=== PATIENT | female | born 1980 | race Caucasian/White ===

== ENCOUNTER 2019-06-27 04:47 | Emergency (ER) | payer BC ==
[2019-06-27] MEDS ORDERED: NA CHLORIDE 0.9% 1,000 ML ONE (05:06)
[2019-06-27] MEDS ORDERED: METHYLPREDNISOLONE 125 MG INJ ONE (05:06)
[2019-06-27] MEDS ORDERED: DIPHENHYDRAMINE 50 MG/ML VIAL ONE (05:06)
[2019-06-27] MEDS ORDERED: predniSONE 20 MG TAB ONE (05:06)
[2019-06-27] MEDS ORDERED: FAMOTIDINE 20 MG/2 ML VIAL IV ONE (05:07)
[2019-06-27 05:15] LABS: Absolute Lymphocytes (CBC) 3.7 K/uL (0.7-4.9); Basophils % 0.7 % (0-1.3); Hematocrit 36.2 % (36.0-45.0)
[2019-06-27 05:32] LABS: Albumin 3.3 g/dL (3.4-5.0); Bilirubin Total 0.7 mg/dL (0.2-1.0); Potassium 3.7 mmol/L (3.5-5.1); Protein, Total 6.5 g/dL (6.4-8.2)
--- NOTE | 2019-06-27 05:38 | ER ---
Nurse's Notes [facility] Name: Barbara Mckeon Age: 39 yrs Sex: Female : 1980 Arrival Date: 06/27/2019 Time: 04:49 Bed 8 Private MD: Diagnosis: Syncope and collapse;Urticaria, unspecified Presentation: 06/26 04:58 Chief complaint: Patient states: "I got up because I was really thirsty. I took a good jd3 couple of sips of my kids juice and about the time I went to lay down my hands and neck started to itch real bad, my chest heart felt like it was racing and my said I past out after taking some Benadryl. I think I might be allergic to the juice." EMS states: "Pt reported that she might have had an allergic reaction to this fruit juice she drank.". Coronavirus screen: Proceed with normal triage. Ebola Screen: Patient negative for fever greater than or equal to 101.5 degrees Fahrenheit, and additional compatible Ebola Virus Disease symptoms. Initial Sepsis Screen: Does the patient meet any 2 criteria? No. Patient's initial sepsis screen is negative. Does the patient have a suspected source of infection? No. Patient's initial sepsis screen is negative. Risk Assessment: Do you want to hurt yourself or someone else? Patient reports no desire to harm self or others. Onset of symptoms was June 27, 2019. 04:58 Method Of Arrival: EMS: [facility] jd3 04:58 Acuity: ANDREW 3 jd3 05:03 Care prior to arrival: Medication(s) given: Normal saline infusion, 500 mL, zofran 4 jd3 mg, IV initiated. 18 GA, in the right antecubital area, Glucose check: 111. 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 - Social history:: Smoking status: Patient reports the use of cigarette tobacco products, denies chronic smoking, but will smoke occasionally. - Family history:: not pertinent. Screenin:05 Abuse screen: Denies threats or abuse. Nutritional screening: No deficits noted. jd3 Tuberculosis screening: No symptoms or risk factors identified. Fall Risk Ambulatory Aid- None/Bed Rest/Nurse Assist (0 pts). Gait- Normal/Bed Rest/Wheelchair (0 pts) Mental Status- Oriented to own ability (0 pts). Total Hernandez Fall Scale indicates No Risk (0-24 pts). Assessment: 05:03 General: Appears in no apparent distress. comfortable, Behavior is calm, cooperative, jd3 appropriate for age. Pain: Denies pain. Neuro: Level of Consciousness is awake, alert, obeys commands, Oriented to person, place, time, situation. Cardiovascular: Heart tones S1 S2 present Capillary refill < 3 seconds Patient's skin is warm and dry. Respiratory: Airway is patent Respiratory effort is even, unlabored, Respiratory pattern is regular, symmetrical, Breath sounds are clear bilaterally. Denies cough, shortness of breath. GI: Reports nausea prior to arrival, nothing reported at this time. : No signs and/or symptoms were reported regarding the genitourinary system. EENT: No signs and/or symptoms were reported regarding the EENT system. Derm: Skin is intact, Skin is dry, Skin is normal, Skin temperature is warm redness noted to LISSA hands. Musculoskeletal: Circulation, motion, and sensation intact. Range of motion: intact in all extremities. 05:48 Reassessment: Patient appears in no apparent distress at this time. Patient and/or jd3 family updated on plan of care and expected duration. Pain level reassessed. Patient is alert, oriented x 3, equal unlabored respirations, skin warm/dry/pink. awaiting family for discharge. Patient denies pain at this time. Patient states feeling better. Vital Signs: 05:02 BP 115 / 85; Pulse 83; Resp 17 S; Temp 97.5(O); Pulse Ox 100% on R/A; Weight 62.6 kg jd3 (R); Height 5 ft. 7 in. (170.18 cm) (R); Pain 0/10; 05:49 BP 116 / 80; Pulse 81; Resp 17 S; Pulse Ox 100% on R/A; jd3 05:02 Body Mass Index 21.61 (62.60 kg, 170.18 cm) [facility] ED Course: 04:49 Patient arrived in ED. ds1 04:52 Jose Sheldon MD is Attending Physician. ghislaine 04:57 Ross Lundy RN is Primary Nurse. jd3 05:00 Maintain EMS IV. Dressing intact. Good blood return noted. Site clean \\T\\ dry. Gauge \\T\\ damian 3 site: 18 G to the right AC. 05:01 Triage completed. jd3 05:03 Arm band placed on. jd3 05:06 Patient has correct armband on for positive identification. Bed in low position. Call jd3 light in reach. Side rails up X 1. Pulse ox on. NIBP on. Warm blanket given. 05:07 Comprehensive Metabolic Panel Sent. tl2 05:07 CBC with Diff Sent. tl2 05:49 No provider procedures requiring assistance completed. IV discontinued, intact, jd3 bleeding controlled, No redness/swelling at site. Pressure dressing applied. Administered Medications: 05:13 Drug: Pepcid 20 mg Route: IVP; Infused Over: 2 mins; Site: right antecubital; tl1 05:49 Follow up: Response: No adverse reaction jd3 05:13 Drug: SOLU-Medrol 125 mg Route: IVP; Infused Over: 2 mins; Site: right antecubital; tl1 05:49 Follow up: Response: No adverse reaction jd3 05:13 Drug: predniSONE 20 mg Route: PO; tl1 05:49 Follow up: Response: No adverse reaction jd3 05:14 Drug: NS 0.9% 1000 ml Route: IV; Rate: 1 bolus; Site: right antecubital; tl1 05:48 Follow up: Response: No adverse reaction; IV Status: Completed infusion; IV Intake: jd3 1000ml 05:14 Drug: Benadryl 25 mg Route: IVP; Infused Over: 2 mins; Site: right antecubital; tl1 05:49 Follow up: Response: No adverse reaction jd3 Intake: 05:48 IV: 1000ml; Total: 1000ml. jd3 Outcome: 05:37 Discharge ordered by . ghislaine 05:50 Discharged to home ambulatory, with family. jd3 05:50 Condition: stable 05:50 Discharge instructions given to patient, Instructed on discharge instructions, follow up and referral plans. medication usage, Demonstrated understanding of instructions, follow-up care, medications, Prescriptions given X 4. 05:54 Patient left the ED. jd3 Signatures: Jose Sheldon MD MD cha Sanford, Demi ds1 Rona Woods, RN RN tl1 Hodan Mckeon RN RN tl2 Ross Lundy RN RN jd3
--- NOTE | 2019-06-27 05:38 | EDPHYS ---
Physician Documentation [facility] Name: Barbara Mckeon Age: 39 yrs Sex: Female : 1980 Arrival Date: 06/27/2019 Time: 04:49 Bed 8 Private MD: ED Physician Jose Sheldon HPI: 06/26 04:57 This 39 yrs old Female presents to ER via Unassigned with complaints of ghislaine Syncope. 04:57 The patient has experienced syncope, collapsed. Onset: The symptoms/episode ghislaine began/occurred just prior to arrival. Duration: This was a single episode. 04:57 The patient presents with itching, localized swelling, rash, redness of skin, runny ghislaine nose. Associated signs and symptoms: Pertinent positives: hives, light headed, swelling, syncope. Possible causes: grapes. At home the patient or guardian has treated the symptoms with Benadryl. Severity of symptoms: At their worst the symptoms were mild in the emergency department the symptoms are unchanged. 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 - Social history:: Smoking status: Patient reports the use of cigarette tobacco products, denies chronic smoking, but will smoke occasionally. - Family history:: not pertinent. ROS: 04:57 Constitutional: Negative for fever, chills, and weight loss, Eyes: Negative for injury, ghislaine pain, redness, and discharge, ENT: Negative for injury, pain, and discharge, Neck: Negative for injury, pain, and swelling, Cardiovascular: Negative for chest pain, palpitations, and edema, Respiratory: Negative for shortness of breath, cough, wheezing, and pleuritic chest pain, Abdomen/GI: Negative for abdominal pain, nausea, vomiting, diarrhea, and constipation, Back: Negative for injury and pain, : Negative for injury, bleeding, discharge, and swelling, MS/Extremity: Negative for injury and deformity, Psych: Negative for depression, anxiety, suicide ideation, homicidal ideation, and hallucinations, Allergy/Immunology: Negative for hives, rash, and allergies, Endocrine: Negative for neck swelling, polydipsia, polyuria, polyphagia, and marked weight changes, Hematologic/Lymphatic: Negative for swollen nodes, abnormal bleeding, and unusual bruising. 04:57 Skin: Positive for rash, diffusely. 04:57 Neuro: Positive for syncope, near syncope. Exam: 04:57 Constitutional: This is a well developed, well nourished patient who is awake, alert, ghislaine and in no acute distress. Eyes: Pupils equal round and reactive to light, extra-ocular motions intact. Lids and lashes normal. Conjunctiva and sclera are non-icteric and not injected. Cornea within normal limits. Periorbital areas with no swelling, redness, or edema. ENT: Nares patent. No nasal discharge, no septal abnormalities noted. Tympanic membranes are normal and external auditory canals are clear. Oropharynx with no redness, swelling, or masses, exudates, or evidence of obstruction, uvula midline. Mucous membranes moist. Neck: Trachea midline, no thyromegaly or masses palpated, and no cervical lymphadenopathy. Supple, full range of motion without nuchal rigidity, or vertebral point tenderness. No Meningismus. Chest/axilla: Normal chest wall appearance and motion. Nontender with no deformity. No lesions are appreciated. Cardiovascular: Regular rate and rhythm with a normal S1 and S2. No gallops, murmurs, or rubs. Normal PMI, no JVD. No pulse deficits. Respiratory: Lungs have equal breath sounds bilaterally, clear to auscultation and percussion. No rales, rhonchi or wheezes noted. No increased work of breathing, no retractions or nasal flaring. Abdomen/GI: Soft, non-tender, with normal bowel sounds. No distension or tympany. No guarding or rebound. No evidence of tenderness throughout. Back: No spinal tenderness. No costovertebral tenderness. Full range of motion. MS/ Extremity: Pulses equal, no cyanosis. Neurovascular intact. Full, normal range of motion. Neuro: Awake and alert, GCS 15, oriented to person, place, time, and situation. Cranial nerves II-XII grossly intact. Motor strength 5/5 in all extremities. Sensory grossly intact. Cerebellar exam normal. Normal gait. Psych: Awake, alert, with orientation to person, place and time. Behavior, mood, and affect are within normal limits. 04:57 Head/face: Noted is erythema, that is mild, of the right ear, left ear, right base of the skull and right mandible. 04:57 ENT: Posterior pharynx: no acute changes, Airway: normal, no evidence of obstruction. 04:57 Skin: Appearance: Color: normal in color, Temperature: normal temperature, Moisture: normal moisture, petechiae, not noted, ecchymosis, not noted, flushing, noted on the face, scalp, right hand and left hand, diaphoresis is not appreciated. 05:05 Musculoskeletal/extremity: DVT Exam: No signs of deep vein thrombosis. no pain, no ghislaine swelling, no tenderness, negative Homans' sign noted on exam, no appreciated bluish discoloration, no erythema, no increased warmth. 05:17 ECG was reviewed by the Attending Physician. [facility] Vital Signs: 05:02 BP 115 / 85; Pulse 83; Resp 17 S; Temp 97.5(O); Pulse Ox 100% on R/A; Weight 62.6 kg jd3 (R); Height 5 ft. 7 in. (170.18 cm) (R); Pain 0/10; 05:49 BP 116 / 80; Pulse 81; Resp 17 S; Pulse Ox 100% on R/A; jd3 05:02 Body Mass Index 21.61 (62.60 kg, 170.18 cm) jd3 MDM: 04:52 Patient medically screened. [facility] 05:00 Data reviewed: vital signs, nurses notes, lab test result(s). [facility] 05:03 Differential diagnosis: anaphylaxis, angioedema, Hereditary Angioedema urticaria, ghislaine Vasovagal Reactions. Differential Diagnosis: cardiac arrhythmia, drug effect, emotional response, idiopathic syncope, seizure, vasovagal episode. 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 Test interpretation: by ED physician or midlevel provider: ECG. 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 Medication response: benadryl, pepcid and steroids. ED course: pt improved, pt explained results and thoughts and plans. 05:37 ED course: pt at baseline, much improved. [facility] 06/26 04:57 Order name: CBC with Diff; Complete Time: 05:36 [facility] 06/26 04:57 Order name: Comprehensive Metabolic Panel; Complete Time: 05:36 [facility] 06/26 05:06 Order name: EKG; Complete Time: 05:06 [facility] 06/26 05:06 Order name: EKG - Nurse/Tech; Complete Time: 05:12 [facility] EC: Rate is 82 beats/min. Rhythm is regular. QRS [place] is Normal. [place] interval is normal. QRS ghislaine interval is normal. QT interval is normal. No Q waves. T waves are Normal. No ST changes noted. Clinical impression: Normal ECG and No evidence of ischemia. Interpreted by me. Reviewed by me. Administered Medications: 05:13 Drug: Pepcid 20 mg Route: IVP; Infused Over: 2 mins; Site: right antecubital; tl1 05:49 Follow up: Response: No adverse reaction jd3 05:13 Drug: SOLU-Medrol 125 mg Route: IVP; Infused Over: 2 mins; Site: right antecubital; tl1 05:49 Follow up: Response: No adverse reaction jd3 05:13 Drug: predniSONE 20 mg Route: PO; tl1 05:49 Follow up: Response: No adverse reaction jd3 05:14 Drug: NS 0.9% 1000 ml Route: IV; Rate: 1 bolus; Site: right antecubital; tl1 05:48 Follow up: Response: No adverse reaction; IV Status: Completed infusion; IV Intake: jd3 1000ml 05:14 Drug: Benadryl 25 mg Route: IVP; Infused Over: 2 mins; Site: right antecubital; tl1 05:49 Follow up: Response: No adverse reaction jd3 Disposition: 06/27/19 05:37 Discharged to Home. Impression: Syncope and collapse, Urticaria, unspecified. - Condition is Stable. - Discharge Instructions: Hives, Near-Syncope, Syncope, Angioedema, Weakness, Near-Syncope, Ghvn-[id number]-[id number], Syncope, Flbk-rk-Dthi, Weakness, Jgmj-[id number], Hives, Hsfh-xs-[id number]. - Prescriptions for Benadryl 25 mg Oral Capsule - take 1 capsule by ORAL route every 6 hours As needed; 30 tablet. Pepcid 20 mg Oral Tablet - take 1 tablet by ORAL route every 12 hours for 10 days; 20 tablet. Prednisone 20 mg Oral Tablet - take 2 tablet by ORAL route once daily for 5 days; 10 tablet. EpiPen 0.3 mg Injection auto- injector - inject 1 pen by INTRAMUSCULAR route one time Inject into the outer portion of the thigh, through clothing if necessary. Indicated in the emergency treatment of allergic reactions; 1 Container. - Medication Reconciliation Form, Thank You Letter, Antibiotic Education, Prescription Opioid Use form. - Follow up: Private Physician; When: 2 - 3 days; Reason: Recheck today's complaints, Continuance of care, Re-evaluation by your physician. - Problem is new. - Symptoms have improved. 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 Impression: Syncope and collapse; Urticaria, jd3 unspecified. Condition is Stable. Discharge Instructions: Hives, Near-Syncope, Syncope, Angioedema, Weakness, Near-Syncope, Tnrh-uc-Mdvc, Syncope, Fycc-ho-Rsdo, Weakness, Tgzf-pr-Rzjz, Hives, Znkc-qp-Hezr. Prescriptions for Benadryl 25 mg Oral Capsule - take 1 capsule by ORAL route every 6 hours As needed; 30 tablet, Pepcid 20 mg Oral Tablet - take 1 tablet by ORAL route every 12 hours for 10 days; 20 tablet, Prednisone 20 mg Oral Tablet - take 2 tablet by ORAL route once daily for 5 days; 10 tablet, EpiPen 0.3 mg Injection auto-injector - inject 1 pen by INTRAMUSCULAR route one time Inject into the outer portion of the thigh, through clothing if necessary. Indicated in the emergency treatment of allergic reactions; 1 Container. and Forms are Medication Reconciliation Form, Thank You Letter, Antibiotic Education, Prescription Opioid Use. Follow up: Private Physician; When: 2 - 3 days; Reason: Recheck today's complaints, Continuance of care, Re-evaluation by your physician. Problem is new. Symptoms have improved. ghislaine
[2019-06-27 06:34] VITALS: BP 116/80; O2SAT 100
[2019-06-27 06:38] VITALS: TEMP 97.5
--- NOTE | 2019-06-29 07:04 | EKG ---
Test Date: 2019-06-27 Test Time: 05:16:28 Turner Machine: OSCAR MEASUREMENT RESULTS: Intervals: Rate: 82 OK: 188 QRSD: 90 QT: 368 QTc: 429 [place]: P: 57 OK: 188 QRS: 73 T: 64 INTERPRETIVE STATEMENTS: Normal sinus rhythm Possible Anterior infarct, age undetermined Abnormal ECG No previous ECG available for comparison Electronically Signed On 06-29-19 07:00:40 CDT by Randy Valiente
== END 2019-06-27 05:54 | disposition home or self-care (01) ==
LOC: ER 04:47
DX: L50.9 Urticaria, unspecified (principal); Z72.0 Tobacco use; Z88.0 Allergy status to penicillin
CPT/HCPCS: 96361; 93005; 85025; 36415; 80053; 96375; 96374; 99284; J1200; J7030; J2930; J7512

== ENCOUNTER 2022-04-25 09:52 | Observation (INO) | payer BC ==
--- OUTSIDE RECORDS SUMMARY | 2022-04-25 09:55 | XMS REPORT | Continuity of Care Document ---
:1980 Author Organization [facility] t Address [address] [address] [place] [address] Care Team Providers Name Role Phone MAGDI BONILLA Primary Care Physician Unavailable Kajal Erickson NP Attending Clinician KAJAL ERICKSON Attending Clinician Unavailable Gale Tran Attending Clinician Unavailable Nadira CARRION, Louis Attending Clinician Diogo Burroughs MD Attending Clinician KAJAL ERICKSON Admitting Clinician Unavailable Physician, No Primary or Family Admitting Clinician Unavaila [facility] Payers Payer Name Policy Type Policy Number Effective Date Expiration Date S ource Problems Condition Condition Condition Status Onset Resolution Last Treating Co mments Source Name Details Category Date Date Treatment Clinician Date 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 Will have the patient get neuropsyc hological testing.T he testing will be put on hold for now until next visit. Multiple Multiple Disease Active [facility] sclerosis sclerosis 11-05 Assessmen L [facility] 00:00: t & Plan: Medical 00 [facility] g of this note might be different from the original. Will continue with Copaxone. 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 Patient to continue with primidone 100 mg at night. Multiple Multiple Disease Active 2009-02 [facility] r sclerosis sclerosis 2-20 Valerio ege (HCCode) (HCCode) 00:00: of 00 Medicin e Allergies, Adverse Reactions, Alerts Allergy Allergy Status Severity Reaction(s) Onset Inactive Treating Comm ents Source Name Type Date Date Clinician Grape Propensi Active Anaphylaxis 2020-02 Uni vers ty to 1-05 ity of adverse 00:00: [place] reaction 00 Medical s Branch Penicill Propensi Active Hives 2020-02 Univer s ins ty to 105 ity of adverse 00:00: [place] reaction 00 Medical s Branch PENICILL Drug Active Hives 2020-02 Univers INS Class 1-05 ity of 00:00: [place] 00 Medical Branch GRAPE DRUG Active Anaphylaxis 2020-02 Unive rs INGREDI 1-05 ity of 00:00: [place] 00 Medical Branch Sulfa Propensi Active [facility] Antibiot ty to 5-22 [facility] adverse 00:00: of reaction 00 Medicin s to e drug Sulfa Drug Active Hives [facility] (Sulfona Allergy 11-05 [facility] mide 00:00: Medical Antibiot 00 [facility]) Not DA Active U [facility] 6-21 [place] [facility] 36. 00:00: d See 00 Medical Text[facility] Not DA Active U 2008-0 [facility] Converte 6-21 [place] [facility] 80. 00:00: d See 00 Medical Text. Center NO KNOWN Drug Active Univers ALLERGIE Class ity of S [facility] Family History Family Member Diagnosis Comments Start Date Stop Date Source Maternal grandmother Cancer [facility] Maternal grandmother Hypertension [facility] Natural mother Arthritis [facility] Natural mother Migraines [facility] Paternal grandmother Cancer [facility] Paternal grandmother Hyperlipidemia [facility] Natural daughter Asthma [facility] Natural daughter Migraines [facility] Maternal aunt Cancer [facility] Maternal grandfather Cancer [facility] Social History Social Habit Start Date Stop Date Quantity Comments Source History of Current smoker [facility] [place] of tobacco use Medicine Exposure to Not sure University of SARS-CoV-2 [place] [facility] (event) Branch Alcohol intake 2018-10-26 2018-10-26 Current drinker CHULA Wiggins 00:00:00 00:00:00 of alcohol [facility] (finding) Sex Assigned At [birth year] [facility] 00:00:00 [facility]:00 [facility] Smoking Status Start Date Stop Date Source Unknown if ever smoked Universit y of [facility] Former smoker 2019-02-23 00:00:00 2019-02-23 00:00:00 [facility] Medications Ordered Filled Start Stop Current Ordering Indication Dosage Frequency Signature Comments Components Source Medication Medication Date Date Medication? Clinician (SIG) Name Name arthur 2020-02- No 1{tbl} 1 tablet, Univers acetaminoph 02-15 Oral, ity of en-caff 02:30: 01:38 ONCE, 1 Maximo (ESGIC) 00 :00 dose, On Medical 50-325-40 Fri Branch mg tablet 1 12/15/20 at tablet 2130, Routine predniSONE 2020-02- No 50mg 50 mg, Univ ers (DELTASONE) 02-15 Oral, ity of tablet 50 02:30: 01:39 ONCE, 1 [place] mg 00 :00 dose, On Medical Fri Branch 12/15/20 at 2130, BOBBY valACYclovi 2020-02- No 1000mg 1,000 mg, Univers r (VALTREX) 02-15 Oral, ONCE i ty of tablet 02:30: 01:38 NOW, 1 [place] 1,000 mg 00 :00 dose, On Medical Fri Branch 12/15/20 at 2130, BOBBY methylPREDN 2020-02 Yes [id number] Take by Univers ISolone 4 1-05 mouth ity of mg tablets 00:00: SEE-INSTRU T [place] 00 CTIONS. Medical follow Branch package directions butalbital- 2020-02 Yes [id number] 1{tbl} Take 1 Univers acetaminoph 1-05 tablet by ity of en-caff 00:00: mouth [place] 50-325-40 00 every 4 Medical mg tablet (four) Branch hours as needed for Pain (scale 1-3) or Pain (scale 4-6). valACYclovi 2020-02- No [id number] 1g Take 1 Univers r 1 gram 1-05 11-13 tablet by ity o f tablet 00:00: 05:59 mouth 2 [place] 00 :00 (two) Medical times Branch daily for 7 days. natalizumab 2019- No 300mg Inject 300 Davi , TYSABRI, 1-14 01-14 mg into Colle ge (TYSABRI) 17:35: 00:00 the vein of 300 MG/15ML 56 :00 once. Medicin injection e propranolol Yes 20mg Take 1 Tab [facility] (INDERAL) 1-14 by mouth 3 Valerio ege 20 MG 00:00: times of tablet 00 daily. Medicin e escitalopra Yes TAKE ONE Ba ylor m (LEXAPRO) 1-06 (1) College 20 MG 00:00: TABLET(S) of tablet 00 BY MOUTH Medicin DAILY. e MAVENCLAD, 2018-02 Yes Davi 7 TABS, 10 2-31 College MG TBPK 00:00: of 00 Medicin e gabapentin 2018-02 Yes TAKE ONE [facility] (NEURONTIN) 1-08 (1) College 300 MG 00:00: CAPSULE(S) of capsule 00 BY MOUTH Medicin TWICE A e DAY. predniSONE 2019- No 1000mg Take 20 B aylor (DELTASONE) 9-27 01-14 Tabs by Valerio ege 50 MG 00:00: 00:00 mouth of tablet 00 :00 daily. Medicin e gabapentin Yes 300mg Take 1 Cap [facility] (NEURONTIN) 8-14 by mouth Valerio ege 300 MG 00:00: two times of capsule 00 daily. Medicin e Cholecalcif Yes Take by [facility] alex 4-22 mouth. [place] (VITAMIN 13:39: of D3) 5000 12 Medicin UNITS CHEW e natalizumab Yes 300mg Inject 300 Davi , TYSABRI, 4-22 mg into Colleg e (TYSABRI) 13:39: the vein of 300 MG/15ML 12 once. Medicin injection e Cholecalcif Yes Take by [facility] alex 4-22 mouth. [place] (VITAMIN 13:39: of D3) 5000 12 Medicin UNITS CHEW e escitalopra Yes 20mg Take 1 Tab Davi m (LEXAPRO) 4 by mouth [facility] ege 20 MG 00:00: daily. of tablet 00 Medicin e escitalopra Yes 10mg Take 1 Tab Davi m (LEXAPRO) 8 by mouth Val[facility]io ege 10 MG 00:00: daily. of tablet 00 Medicin e escitalopra 2020- No 10mg Take 1 Tab Davi m (LEXAPRO) 09-1514 by mouth Col lege 10 MG 00:00: 00:00 daily. of tablet 00 :00 Medicin e VITAMIN D2 Yes TAKE 1 [facility] t 50,000 unit 5-23 CAPSULE [facility] capsule 00:00: (50,000 Medical 00 UNITS Center TOTAL) BY MOUTH ONCE A WEEK. multivitami Yes 1{tbl} QD Take [address] n per 2-03 tablet by [facility]ukes tablet 10:16: mouth Medical 11 daily. Center sertraline Yes 25mg QD Take [address] (ZOLOFT) 25 2-03 by mouth Luke s MG tablet 10:16: daily. Medica l 11 [place] COPAXONE 40 2015-02 Yes 40mg/mL Inject [address] mg/mL Syrg 0-19 mg/mL as [facility] 00:00: directed . Medical 00 [place] Vital Signs Vital Name Observation Time Observation Value Comments Source Systolic blood 2020-12-16 01:00:00 149 mm[Hg] Univer sity of pressure [facility] Diastolic blood 2020-12-16 01:00:00 98 mm[facility]Hg] [facility] Heart rate 2020-12-16 01:00:00 81 /min [facility] Respiratory rate 2020-12-16 01:00:00 21 /min [facility] saturation in 2020-12-16 01:00:00 99 /min [facility] Arterial blood by [facility] Pulse oximetry Branch Body temperature 2020-12-15 23:54:00 37.17 Alondra [facility] Body height 2020-12-15 23:54:00 170.2 cm Universi ty [facility] [place] Body weight 2020-12-15 23:54:00 65.772 kg Universi ty [facility] [place] BMI 2020-12-15 23:54:00 22.71 kg/m2 Universi ty [facility] [place] Systolic blood 2019-02-23 16:35:00 119 mm[Hg] [facility] pressure Medicine Diastolic blood 2019-02-23 16:35:00 79 mm[Hg] [facility] pressure Medicine Heart rate 2019-02-23 16:35:00 93 /min [facility] Body height 2019-02-23 16:35:00 172.7 cm [facility] Body weight 2019-02-23 16:35:00 83.462 kg [facility] BMI 2019-02-23 16:35:00 27.98 kg/m2 [facility] Systolic blood 2018-10-15 17:00:00 97 mm[Hg] [facility] pressure Medicine Diastolic blood 2018-10-15 17:00:00 70 mm[Hg] [facility] pressure Medicine Heart rate 2018-10-15 17:00:00 85 /min [facility] Body height 2018-10-15 17:00:00 172.7 cm [facility] Body weight 2018-10-15 17:00:00 73.755 kg [facility] BMI 2018-10-15 17:00:00 24.72 kg/m2 [facility] Procedures Procedure Date / Time Performed Performing Clinician [facility] sheryl CT ANGIOGRAM HEAD 2020-12-16 00:49:27 Kajal Erickson [facility] CT ANGIOGRAM NECK 2020-12-16 00:49:27 Kajal Erickson [facility] CT HEAD WO CONTRAST 2020-12-16 00:48:58 Kajal Erickson [facility] COMP. METABOLIC PANEL 2020-12-16 00:20:00 Kajal Erickson [facility] ([id number]) Medical Branch CBC WITH DIFF 2020-12-16 00:20:00 Kajal Erickson [facility] CONSENT/REFUSAL FOR 2020-12-15 23:36:39 Doctor Unassigned, No [facility] AND Name Medical Branch TREATMENT NOTICE OF PRIVACY 2020-12-15 23:36:22 Doctor Unassigned, No Univ [facility] [place] PRACTICES Name Medical Branch Plan of Care Planned Activity Planned Date Details Comments Source Future Scheduled HEP B CORE Ordered: 10/15/2018 [facility] or [place] Test ANTIBODY, TOTAL of Medicine [code = 64670] Future Scheduled HEPATITIS B Ordered: 10/15/2018 [facility] [place] Test SURFACE AB QUAL of Medicine [code = 12959-5] Future Scheduled HEPATITIS B Ordered: 10/15/2018 [facility] [place] Test SURFACE ANTIGEN of Medicine [code = 5196-1] Future Scheduled HEPATITIS C Ordered: 10/15/2018 [facility] [place] Test ANTIBODY [code = of Medicine 75564-6] Future Scheduled HIV AB/AG 4TH GEN Ordered: 10/15/2018 [facility] Test W RFLX [code = of Medicine 11589-4] Future Scheduled MAMMOGRAM ANNUAL [facility] Test [code = MAMMOGRAM of Medicin e ANNUAL] Future Scheduled TETANUS SHOT [facility] Val[facility]io ege Test (ADULT) [code = of Medicine TETANUS SHOT (ADULT)] Future Scheduled HIV SCREENING [facility] Col lege Test [code = HIV of Medicine SCREENING] Future Scheduled CERVICAL CANCER [facility] C ollege Test SCREENING 3 YEAR of Medicine FOLLOW UP [code = CERVICAL CANCER SCREENING 3 YEAR FOLLOW UP] Future Scheduled FLU VACCINE > 6 [facility] C ollege Test MONTHS [code = FLU of Medici ne VACCINE > 6 MONTHS] Future Scheduled MAMMOGRAM ANNUAL [facility] Test [code = MAMMOGRAM of Medicin e ANNUAL] Future Scheduled TETANUS SHOT [facility] Valerio ege Test (ADULT) [code = of Medicine TETANUS SHOT (ADULT)] Future Scheduled BMI FOLLOW UP PLAN [facility] r College Test [code = BMI FOLLOW of Medici ne UP PLAN] Future Scheduled CERVICAL CANCER [facility] C ollege Test SCREENING 3 YEAR of Medicine FOLLOW UP [code = CERVICAL CANCER SCREENING 3 YEAR FOLLOW UP] Future Scheduled FLU VACCINE > 6 [facility] C ollege Test MONTHS [code = FLU of Medici ne VACCINE > 6 MONTHS] Future Scheduled MRI BRAIN W WO 1 Occurrences [facility] C ollege Test CONTRAST [code = starting 10/15/2018 of M edicine 59809-2] until 05/16/2019 Future Scheduled MRI CERVICAL SPINE 1 Occurrences [facility] or [facility] Test W WO CONTRAST starting 10/15/2018 of Medi cine [code = 69887-5] until 05/16/2019 Encounters Start End Encounter Admission Attending Care Care Encounter Source Date/Time Date/Time Type Type Clinicians Facility Department ID 2020-12-15 2020-12-15 Emergency [facility] [id number] Univers 19:01:00 21:07:00 Kajal CASPER [id number] ity [facility] [id number] [facility] [id number] [place] [address] Branch 2020-12-15 2020-12-15 Emergency X [facility] ERT [id number] Univers 19:01:00 21:07:00 KAJAL tracey [facility] [place] 2020-06-06 2020-06-06 Outpatient BONIFACIO Tran, [facility] HCAPM [id number] [facility] 04:08:48 04:08:48 Gale Thompson [facility] 2019-02-23 2019-02-23 Office OSCAR Waddell [id number] [facility] 10:32:32 15:01:40 Visit Louis AMBULATOR [id number] College Y [id number] of [id number] [facility] louise 800 e 2018-10-15 2018-10-15 Office OSCAR Burroughs [id number] [facility] 10:44:27 12:06:39 Visit Diogo Halley AMBULATOR [id number] College Y [id number] of [id number] [facility] louise 830 e Results Test Description Test Time Test Comments Results Result Comments Source COMP. METABOLIC PANEL (19976) 2020-12-16 00:43:02 Test Item Value Reference Range Interpretation Comme nts NA (test code = 5610824235) 137 mmol/L 135-145 K (test code = 4275152502) 3.6 mmol/L 3.5-5.0 CL (test code = 7695542563) 104 mmol/L 98-108 CO2 TOTAL (test code = 25 mmol/L 23-31 9469626131) AGAP (test code = 6047975476) 2-16 BUN (test code = 1064675737) 7 mg/dL 7-23 GLUCOSE (test code = 0389160012) 85 mg/dL 70-110 CREATININE (test code = 0.73 mg/dL 0.50-1.04 7145174497) TOTAL BILI (test code = 0.6 mg/dL 0.1-1.2 0910901178) CALCIUM (test code = 7006291823) 9.9 mg/dL 8.6-10.6 T PROTEIN (test code = 7.6 g/dL 6.3-8.2 5290712755) ALBUMIN (test code = 4431913235) 4.6 g/dL 3.5-5.0 ALK PHOS (test code = 3611447058) 63 U/L 34-122 ALTv (test code = 1742-6) 13 U/L 5-35 AST(SGOT) (test code = 25 U/L 13-40 5550692955) eGFR (test code = 0444241715) mL/min/1.73m2 NELDA (test code = NELDA) Association of Glomerular Filtration Rate (GFR) and Staging of Kidney Disease* + +--------- + ----+| GFR (mL/min/1.73 m2) ?| With Kidney Damage ?| ?Without Kidney Damage+ +--- + +| ?>90 ?| ?Stage one ?| ? Normal ?+ +-------- + -----+| ?60-89 ?| ?Stage two ?| ? Decreased GFR ? + +--------- + ----+| ?30-59 ?| ?Stage three ?| ? Stage three ? + +--------- + ----+| ?15-29 ?| ?Stage four ? | ? Stage four ?+ +-------- + -----+| ?<15 (or dialysis) ? ?| ?Stage five ? | ? Stage five ?+ +-------- + -----+ *Each stage assumes the associated GFR level has been in effect for at least three months. ?Stages 1 to 5, with or without kidney disease, indicate chronic kidney disease. Notes: Determination of stages one and two (with eGFR >59mL/min/1.73 m2) requires estimation of kidney damage for at least three months as defined by structural or functional abnormalities of the kidney, manifested by either:Pathological abnormalities or Markers of kidney damage (including abnormalities in the composition of the blood or urine or abnormalities in imaging tests). [facility] WITH [id number] 00:37:02 Test Item Value Reference Range Interpretation Comments WBC (test code = See_Comment H [Automated 6690-2) message] The sy stem which generated this result transmitted reference range : 4.30 - 11.10 10*3/?L. The reference range was not used to interpret this result as normal/abnormal . RBC (test code = See_Comment [Automated 789-8) message] The sy stem which generated this result transmitted reference range : 3.93 - 5.25 10*6/?L. The reference range was not used to interpret this result as normal/abnormal . HGB (test code = 13.0 g/dL 11.6-15.0 718-7) HCT (test code = 38.2 % 35.7-45.2 4544-3) MCV (test code = 96.2 fL 80.6-95.5 H 787-2) MCH (test code = 32.7 pg 25.9-32.8 785-6) MCHC (test code = 34.0 g/dL 31.6-35.1 786-4) RDW-SD (test code = 43.8 fL 39.0-49.9 74910-3) RDW-CV (test code = 12.4 % 12.0-15.5 788-0) PLT (test code = See_Comment [Automated 777-3) message] The sy stem which generated this result transmitted reference range : 166 - 358 10*3/ ?L. The reference r mary was not used to interpret this result as normal/abnormal . MPV (test code = 9.4 fL 9.5-12.9 L 19029-4) NRBC/100 WBC (test See_Comment [Automat ed code = 7241968659) message] The system which generated this result transmitted reference range : 0.0 - 10.0 /100 WBCs. The refer ence range was not u sed to interpret th is result as normal/abnormal . NRBC x10^3 (test code <0.01 See_Comment [Auto mated = 5302448297) message] The s ystem which generated this result transmitted reference range : 10*3/?L. The reference range was not used to interpret this result as normal/abnormal . GRAN MAT (NEUT) % 48.0 % (test code = 770-8) IMM GRAN % (test code 0.40 % = 0510282334) LYMPH % (test code = 30.3 % 736-9) MONO % (test code = 6.1 % 5905-5) EOS % (test code = 13.9 % 713-8) BASO % (test code = 1.3 % 706-2) GRAN MAT x10^3(ANC) 5.64 10*3/uL 1.88-7.09 (test code = 5793729215) IMM GRAN x10^3 (test 0.05 10*3/uL 0.00-0.06 code = 3758313776) LYMPH x10^3 (test code 3.56 10*3/uL 1.32-3.29 H = 731-0) MONO x10^3 (test code 0.72 10*3/uL 0.33-0.92 = 742-7) EOS x10^3 (test code = 1.64 10*3/uL 0.03-0.39 H 711-2) BASO x10^3 (test code 0.15 10*3/uL 0.01-0.07 H = 704-7) Lab Interpretation Abnormal (test code = 05293-7) [facility] WITHOUT / WITH IV [id number] 17:04:00Reason for Exam:->MSFINAL REPORT MR, ORBIT, FACE, NECK, WITHOUT / WITH IV CONTRAST HISTORY: Multiple sclerosis COMPARISON: MRI of the brain 10/26/2018 and 10/28/2017 Technique: Multiplanar, multisequence MRI examination of the orbits was performed without and with intravenous, gadolinium-based contrast. 7 mL of Gadavist were administered. Motion artifacts obscure some details. DISCUSSION: The orbital w alls are grossly intact.The ocular globes and extraocular muscles are normal in morphology.Both optic nerves may be mildly atrophic.The optic chiasm, and tracts are otherwise normal in morphology.No abnormal enhancement is seen along the optic nerves, chiasm, or tracts.The intraconal and extraconal spaces, including the lacrimal glands, are unremarkable.The cavernous sinuses are normal in size and enhance symmetrically.Meckel's caves are clear.The cavernous carotid flow voids are preserved. Additional findings: Please refer to concurrent brain MRI for intracranial findings. Trace T2 hyperintense right mastoid effusion is present. IMPRESSION:Limited exam due to motion artifacts. In spite of limitati ons: 1.Questionable mild atrophy of the bilateral optic nerves.2.Otherwise, grossly unremarkable MRIof the orbits. Signed: Michael Vazquez Verified Date/Time: 10/26/2018 17:04:38 Reading Location: [facility] Room [address] [place] [address] MR, SPINE, CERVICAL, WITHOUT / WITH IV [id number] 16:57:00FINAL REPORT MR, SPINE, CERVICAL, WITHOUT / WITH IV CONTRAST HISTORY: Multiple sclerosis COMPARISON: MRI of the cervical and thoracic spine 10/28/2017; concurrent brain MRI TECHNIQUE: Multiplanar, multisequence MRI examination of the cervical spine was performed before and after the administration of intravenous, gadolinium based contrast. 7 mL of Gadavist were administered. Motion artifacts obscure some details. DISCUSSION: Alignment: Straightening of the cervical lordosis. No scoliosis.Vertebrae: No fractures, infection or neoplasm.Cervicomedullary junction: No abnormalities. Spinal cord: The cord is visualized from the foramen magnum through T4.Focal T2 hyperintense lesions in the central cord at C1, left and central cord at C1-C2, dorsal cord at C3, left dorsal cord at C3,right hemicord and left dorsal cord at C4, bilateral and dorsal cord at C5-C6, and central cord at C6-C7 have not significantly changed.Mild confluent central cord STIR hyperintensity from at least T1-T4 also has not significantly changed (seen only on sagittal STIR images).No definite new T2 hyperintense lesions are seen.The spinal cord is normal in size. No CSF- like T1 cord hypointensities are seen. No abnormal cord enhancement is seen. Soft tissues: No signal abnormalities. Degenerative changes: There is minimal cervical disc degeneration without significant canal stenosis. Incidental findings: Trace T2 hyperintense right mastoid effusion is present. IMPRESSION: 1. Unchanged scattered T2 hyperintense lesions throughout the cervical and visualized upper thoracic cord.2. No enhancing or new T2 hyperintense cord lesions. Signed: Michael Vazquez Verified Date/Time: 10/26/2018 16:57:19 Reading Location: [facility] Reading Room [address] [place] [address] MR, BRAIN, WITHOUT / WITH IV [id number] 16:48:00FINAL REPORT MR, BRAIN, WITHOUT / WITH IV CONTRAST HISTORY: Multiple sclerosis COMPARISON: MRI of the brain 10/28/2017 TECHNIQUE:Multiplanar, multisequence MRI of the brain (including diffusion-weighted imaging) was performed before and after the administration of intravenous, gadolinium based contrast. 3-D FLAIR and postcontrast T1-weighted images were obtained. Motion artifacts obscure some details. DISCUSSION: Scalp/bone marrow: Unremarkable.Ventricles: Compensatory dilatation.Extra-axial spaces: No masses or fluid collections. Parenchyma:T2 lesion load: Number: Innumerable scattered T2 hyperintense lesions have not significantly changed. No definite new T2 hyperintense lesions are seen.Size: Ranging from 2 mm to large confluent lesions.Location: Juxtacortical, periventricular/deep white matter, callosal marginal, bilateral internal capsules, lorena, bilateral cerebellar pedu ncles, bilateral cerebellum, and medulla. CSF-like T1 hypointensities: Several of the lesions approach CSF-like T1 hypointensity; this is overall stable.Enhancing foci: None. Previously seen enhancing lesions have resolved.Corpus callosum volume: Stable generalized volume lossBrain volume: Stable generalized volume loss. Otherwise, no mass, hemorrhage, or acute vascular insults. Vessels: Normal flow voids in major arteries and veins.Sellar/Suprasellar region: No abnormalities.Craniocervical junction: No abnormalities.Incidental findings: None. IMPRESSION:1. Unchanged innumerable scattered T2 hyperintense lesions are compatible with prior demyelination.2. No enhancing or new T2 hyperintense lesions.3.Stable generalized cerebral and callosal volume loss. Signed: Michael Vazquez Verified Date/Time: 10/26/2018 16:48:49 Reading Location: [facility] Reading Room [address] [place], [place] [id number] "
[2022-04-25] MEDS ORDERED: MORPHINE 4 MG/ML SYR ONE ×3 (10:21→16:20)
[2022-04-25] MEDS ORDERED: FAMOTIDINE 20 MG/2 ML VIAL IV ONE (10:21)
[2022-04-25] MEDS ORDERED: ONDANSETRON 4 MG/2 ML VIAL ONE ×3 (10:21→16:20)
[2022-04-25] MEDS ORDERED: NA CHLORIDE 0.9% 1,000 ML ONE (10:21)
[2022-04-25 11:00] LABS: Absolute Lymphocytes (CBC) 1.6 K/uL (0.7-4.9); Hematocrit 33.8 % (36.0-45.0); Lymphocytes % 8.2 % (15.3-44.8); MCV 94.9 fL (80-100); RBC Red Blood Cell Count 3.56 M/uL (3.86-4.86)
[2022-04-25 11:09] LABS: Albumin 3.6 g/dL (3.4-5.0); Bilirubin Total 0.8 mg/dL (0.2-1.0); Potassium 3.7 mmol/L (3.5-5.1); Protein, Total 6.7 g/dL (6.4-8.2)
[2022-04-25] MEDS ORDERED: CIPROFLOXACIN 400mg IV 400 MG/200 ML BAG IV ONE (11:21)
[2022-04-25] MEDS ORDERED: METRONIDAZOLE 500mg IVPB 500 MG/100 ML BAG IV ONE (11:21)
--- NOTE | 2022-04-25 11:41 | RAD REPORT ---
EXAM DESCRIPTION: CT - Abdomen Pelvis W Contrast - 04/25/2022 11:18 am CLINICAL HISTORY: Abdominal pain COMPARISON: none. TECHNIQUE: Computed axial tomography of the abdomen pelvis was obtained. 95 cc Isovue-300 was admini stered intravenously. Oral contrast was not requested which limits evaluation of bowel and appendix All CT scans are performed using dose optimization technique as appropriate and may include automated exposure control or mA/KV adjustment according to patient size. FINDINGS: The liver, spleen, pancreas, adrenal and kidneys appear unremarkable. There is no evidence of diverticulitis. Normal appendix. IUD within the uterus Cholecystectomy A 4.2 centimeter left ovarian cyst probably contains a small amount of hemorrhage without significant free fluid. IMPRESSION: A 4.2 centimeter left hemorrhagic ovarian cyst without significant free fluid.
[2022-04-25 12:10] LABS: Urine Blood Trace-intact (Negative); Urine Glucose Negative (Negative); Urine Protein Negative (Negative); Urine Specific Gravity <=1.005 (1.005-1.030)
--- NOTE | 2022-04-25 13:43 | EDPHYS ---
Physician Documentation [facility] Name: Barbara Mckeon Age: 41 yrs Sex: Female : 1980 Arrival Date: 04/25/2022 Time: 09:54 Bed 8 Private MD: Jaci Martínez ED Physician Corona Arizmendi HPI: 04/25 12:06 This 41 yrs old Female presents to ER via Ambulatory with complaints of Abdominal Pain. kdr 12:06 Patient states that she was awakened last night with lower abdominal pain. Pain kdr initially was low across to her abdomen and then has localized to her right lower quadrant. She states that as her significant other was driving her to the hospital any bumps were very painful to her abdomen. She states as long as she holds still that she has minimal pain. She had some nausea but no vomiting she denies fever she has also had some loose stool but otherwise her review of systems is negative. Patient appears uncomfortable but nontoxic. Onset: The symptoms/episode began/occurred last night. Severity of symptoms: At their worst the symptoms were severe incapacitating in the emergency department the symptoms are unchanged. The patient has not experienced similar symptoms in the past. The patient has not recently seen a physician. 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 - Social history:: Smoking status: Patient reports the use of cigarette tobacco products, smokes one-half pack cigarettes per day. ROS: 12:06 Constitutional: Negative for fever, chills, and weight loss, Eyes: Negative for injury, kdr pain, redness, and discharge, ENT: Negative for injury, pain, and discharge, Neck: Negative for injury, pain, and swelling, Cardiovascular: Negative for chest pain, palpitations, and edema, Respiratory: Negative for shortness of breath, cough, wheezing, and pleuritic chest pain, Back: Negative for injury and pain, : Negative for injury, bleeding, discharge, and swelling, MS/Extremity: Negative for injury and deformity, Skin: Negative for injury, rash, and discoloration, Neuro: Negative for headache, weakness, numbness, tingling, and seizure activity. Psych: Negative for depression, anxiety, suicide ideation, homicidal ideation, and hallucinations, Allergy/Immunology: Negative for hives, rash, and allergies, Endocrine: Negative for neck swelling, polydipsia, polyuria, polyphagia, and marked weight changes, Hematologic/Lymphatic: Negative for swollen nodes, abnormal bleeding, and unusual bruising. 12:06 Abdomen/GI: Positive for abdominal pain, nausea. Exam: 12:09 Constitutional: This is a well developed, well nourished patient who is awake, alert, kdr and in mild to moderate distress. Head/Face: Normocephalic, atraumatic. Eyes: Pupils equal round and reactive to light, extra-ocular motions intact. Lids and lashes normal. Conjunctiva and sclera are non-icteric and not injected. Cornea within normal limits. Periorbital areas with no swelling, redness, or edema. Neck: Trachea midline, no thyromegaly or masses palpated, and no cervical lymphadenopathy. Supple, full range of motion without nuchal rigidity, or vertebral point tenderness. No Meningismus. Chest/axilla: Normal chest wall appearance and motion. Nontender with no deformity. No lesions are appreciated. Cardiovascular: Regular rate and rhythm with a normal S1 and S2. No gallops, murmurs, or rubs. Normal PMI, no JVD. No pulse deficits. Respiratory: Lungs have equal breath sounds bilaterally, clear to auscultation and percussion. No rales, rhonchi or wheezes noted. No increased work of breathing, no retractions or nasal flaring. Back: No spinal tenderness. No costovertebral tenderness. Full range of motion. Skin: Warm, dry with normal turgor. Normal color with no rashes, no lesions, and no evidence of cellulitis. MS/ Extremity: Pulses equal, no cyanosis. Neurovascular intact. Full, normal range of motion. Neuro: Awake and alert, GCS 15, oriented to person, place, time, and situation. Cranial nerves II-XII grossly intact. Motor strength 5/5 in all extremities. Sensory grossly intact. Cerebellar exam normal. Normal gait. Psych: Awake, alert, with orientation to person, place and time. Behavior, mood, and affect are within normal limits. 12:09 Abdomen/GI: Inspection: abdomen appears normal, Bowel sounds: active, in the left upper quadrant, Palpation: 12:23 : CVA tenderness, is absent, Pelvic Exam: External exam: is normal, Speculum exam: kdr scant bleeding, os that is closed, no tissue in cervix is seen, bimanual exam reveals normal findings, no cervical motion tenderness, os that is closed, no adnexa tenderness or masses bilaterally, the nurse was present for the exam. Vital Signs: 09:55 BP 143 / 92; Pulse 98; Resp 18 S; Temp 99.1(O); Pulse Ox 99% on R/A; Weight 63.5 kg aa5 (R); Height 5 ft. 7 in. (R); 10:59 BP 134 / 82; Pulse 82; Resp 18; Pulse Ox 99% ; ko1 09:55 Body Mass Index 21.93 (63.50 kg, 170.18 cm) aa5 MDM: 12:06 Data reviewed: vital signs, nurses notes, lab test result(s), radiologic studies. kdr 13:42 Patient medically screened. kdr 04/25 10:15 Order name: CBC with Diff; Complete Time: 11:13 kdr 04/25 10:15 Order name: CMP; Complete Time: 11:13 kdr 04/25 10:15 Order name: Lipase; Complete Time: 11:13 kdr 04/25 10:15 Order name: CT Abd/Pelvis - IV Contrast Only; Complete Time: 11:46 kdr 04/25 10:15 Order name: IV Saline Lock; Complete Time: 10:23 kdr 04/25 10:15 Order name: Labs collected and sent; Complete Time: 10:24 kdr 04/25 10:36 Order name: Labs - recollect needed: recollect cbc,c7; Complete Time: 10:42 bd 04/25 11:51 Order name: Urine Dipstick-Ancillary (obtain specimen); Complete Time: 12:09 kdr 04/25 12:03 Order name: GC (GONORR/CHLAMYDIA) Probe kdr 04/25 12:10 Order name: Urine Dipstick-Ancillary; Complete Time: 12:21 EDMS 04/25 12:03 Order name: Wet Prep; Complete Time: 13:21 kdr Administered Medications: 10:22 Drug: Famotidine IVP 20 mg Route: IVP; Site: right antecubital; ph 10:24 Drug: Ondansetron IVP 4 mg Route: IVP; Site: right antecubital; ph 10:28 Drug: NS 0.9% IV 1000 ml Route: IV; Rate: 1 bolus; Site: right antecubital; ph 10:29 Drug: morphine IVP or IV 4 mg Route: IVP; Infused Over: 4 mins; Site: right antecubital;ph 11:29 Drug: Ciprofloxacin IVPB 400 mg Volume: 200 ml; Route: IVPB; Infused Over: 60 mins; ph Site: right antecubital; 12:15 Drug: metroNIDAZOLE IVPB 500 mg Volume: 100 ml; Route: IVPB; Rate: 200 ml/hr; Infused ph Over: 30 mins; Site: right antecubital; 13:08 Drug: morphine IVP or IV 4 mg Route: IVP; Infused Over: 4 mins; Site: right antecubital;ph Disposition Summary: 04/25/22 13:42 Hospitalization Ordered Hospitalization Status: Observation kdr Provider: Frank Nettles Location: Telemetry/MedSurg (observation) kdr Condition: Fair kdr Problem: new kdr Symptoms: have improved kdr Bed/Room Type: Standard kdr Room Assignment: kdr Diagnosis - Lower abdominal pain, unspecified - Right lower quadrant kdr Forms: - Medication Reconciliation Form kdr - SBAR form kdr Signatures: Dispatcher [employer] EDUrszula Kaba Kevin, MD MD kdr Sophie Pérez RN RN aa5 Gilma Santiago RN RN ph
--- NOTE | 2022-04-25 13:43 | ER ---
Nurse's Notes [facility] Name: Barbara Mckeon Age: 41 yrs Sex: Female : 1980 Arrival Date: 04/25/2022 Time: 09:54 Bed 8 Private MD: Jaci Martínez Diagnosis: Lower abdominal pain, unspecified-Right lower quadrant Presentation: 04/25 09:55 Chief complaint: Patient states: abd pain and diarrhea that began last night. aa5 09:55 Coronavirus screen: diarrhea. aa5 09:55 Acuity: ANDREW 3 aa5 10:01 Ebola Screen: No symptoms or risks identified at this time. Initial Sepsis Screen: Does ph the patient meet any 2 criteria? No. Patient's initial sepsis screen is negative. Does the patient have a suspected source of infection? No. Patient's initial sepsis screen is negative. Risk Assessment: Do you want to hurt yourself or someone else? Patient reports no desire to harm self or others. Onset of symptoms was April 25, 2022. 10:01 Method Of Arrival: Ambulatory ph MOTOR CHECKER: 10:03 LMP N/A - IUD aa5 Historical: - Allergies: 10:00 PENICILLINS; ph - PMHx: 10:03 Hypertensive disorder; aa5 - PSHx: 10:03 None; aa5 - Immunization history:: Adult Immunizations unknown. - Social history:: Smoking status: Patient reports the use of cigarette tobacco products, smokes one-half pack cigarettes per day. Screenin:[address] [facility] ED Fall Risk Assessment (Adult) History of falling in the last 3 months, ph including since admission No falls in past 3 months (0 pts) Confusion or Disorientation No (0 pts) Intoxicated or Sedated No (0 pts) Impaired Gait No (0 pts) Mobility Assist Device Used No (0 pt) Altered Elimination No (0 pt) Score/Fall Risk Level 0 - 2 = Low Risk Oriented to surroundings, Maintained a safe environment, Hourly rounding (assess needs \T\ fall precautionary measures) done. Abuse screen: Denies threats or abuse. Denies injuries from another. Nutritional screening: No deficits noted. Tuberculosis screening: No symptoms or risk factors identified. Assessment: 10:30 General: Appears in no apparent distress. comfortable, Behavior is calm, cooperative, ph appropriate for age. Pain: Complains of pain in right lower quadrant. Neuro: Level of Consciousness is awake, alert, obeys commands, Oriented to person, place, time, situation. Cardiovascular: Capillary refill < 3 seconds in bilateral fingers Patient's skin is warm and dry. Respiratory: Airway is patent Respiratory effort is even, unlabored, Respiratory pattern is regular, symmetrical. GI: Bowel sounds present X 4 quads. Abdomen is tender to palpation in right lower quadrant Reports lower abdominal pain, diarrhea. Derm: Skin is healthy with good turgor, Skin is pink, warm \T\ dry. Musculoskeletal: Circulation, motion, and sensation intact. Range of motion: intact in all extremities. 11:12 Reassessment: Patient appears in no apparent distress at this time. Patient and/or ph family updated on plan of care and expected duration. Pain level reassessed. Patient is alert, oriented x 3, equal unlabored respirations, skin warm/dry/pink. Pt taken to CT via wheelchair. Vital Signs: 09:55 BP 143 / 92; Pulse 98; Resp 18 S; Temp 99.1(O); Pulse Ox 99% on R/A; Weight 63.5 kg aa5 (R); Height 5 ft. 7 in. (R); 10:59 BP 134 / 82; Pulse 82; Resp 18; Pulse Ox 99% ; ko1 09:55 Body Mass Index 21.93 (63.50 kg, 170.18 cm) aa5 ED Course: 09:54 Patient arrived in ED. mr 09:55 Jaci Martínez is Private Physician. mr 09:55 Arm band placed on Patient placed in an exam room, on a stretcher. aa5 09:57 Corona Arizmendi MD is Attending Physician. kdr 09:59 Ella Quezada, RN is Primary Nurse. ko1 10:00 Primary Nurse role handed off by Ella Quezada, RN ph 10:00 Gilma Santiago, RN is Primary Nurse. ph 10:02 Triage completed. aa5 10:23 CBC with Diff Sent. ko1 10:23 CMP Sent. ko1 10:23 Lipase Sent. ko1 11:20 CT Abd/Pelvis - IV Contrast Only In Process Unspecified. EDMS 12:03 Patient has correct armband on for positive identification. Placed in gown. Bed in low ph position. Call light in reach. Pulse ox on. NIBP on. 12:21 Assist provider with pelvic exam: Set up pelvic tray. Performed by Corona Arizmendi MD ph Specimens sent to lab. Patient tolerated well. 13:42 Frank Nettles MD is Hospitalizing Provider. kdr Administered Medications: 10:22 Drug: Famotidine IVP 20 mg Route: IVP; Site: right antecubital; ph 10:24 Drug: Ondansetron IVP 4 mg Route: IVP; Site: right antecubital; ph 10:28 Drug: NS 0.9% IV 1000 ml Route: IV; Rate: 1 bolus; Site: right antecubital; ph 10:29 Drug: morphine IVP or IV 4 mg Route: IVP; Infused Over: 4 mins; Site: right antecubital;ph 11:29 Drug: Ciprofloxacin IVPB 400 mg Volume: 200 ml; Route: IVPB; Infused Over: 60 mins; ph Site: right antecubital; 12:15 Drug: metroNIDAZOLE IVPB 500 mg Volume: 100 ml; Route: IVPB; Rate: 200 ml/hr; Infused ph Over: 30 mins; Site: right antecubital; 13:08 Drug: morphine IVP or IV 4 mg Route: IVP; Infused Over: 4 mins; Site: right antecubital;ph Medication: 10:01 VIS not applicable for this client. ph Outcome: 13:42 Decision to Hospitalize by Provider. kdr Signatures: Dispatcher [employer] EDRI Corona Arizmendi MD MD kdr HendersonAriadna mr PérezSophie, RN RN aa5 Gilma Santiago RN RN Ella Quezada RN RN ko1
[2022-04-25 14:20] LABS: SARS-CoV-2 Antigen Rapid Res Negative (Negative)
[2022-04-25] MEDS ORDERED: ACETAMINOPHEN 500 MG TAB PO PRN (15:24)
[2022-04-25] MEDS: MORPHINE 4 MG/ML SYR IV PRN ×2 (16:25→21:44)
[2022-04-25] MEDS: ONDANSETRON 4 MG/2 ML VIAL IV PRN (16:25)
[2022-04-25] MEDS: D5 0.45 NS 1,000 ML IV SCH (17:04)
[2022-04-25 17:38] VITALS: BMI 22.9
[2022-04-25 19:08] VITALS: O2SAT 99
[2022-04-26] MEDS: D5 0.45 NS 1,000 ML IV SCH ×2 (00:48→09:25)
[2022-04-26] MEDS: MORPHINE 4 MG/ML SYR IV PRN ×2 (03:19→11:28)
[2022-04-26] MEDS: ONDANSETRON 4 MG/2 ML VIAL IV PRN ×2 (03:19→10:08)
[2022-04-26 04:12] LABS: Absolute Lymphocytes (CBC) 1.8 K/uL (0.7-4.9); Hematocrit 31.2 % (36.0-45.0); Lymphocytes % 19.4 % (15.3-44.8); MCV 95.7 fL (80-100); MPV 7.7 fL (7.6-11.3); RBC Red Blood Cell Count 3.26 M/uL (3.86-4.86)
[2022-04-26 04:35] LABS: Bilirubin Direct 0.3 mg/dL (0-0.2); Bilirubin Total 0.9 mg/dL (0.2-1.0); Potassium 3.2 mEq/L (3.5-5.1); Protein, Total 6.1 g/dL (6.4-8.2)
[2022-04-26 11:58] VITALS: BP 125/75; TEMP 97.7
--- NOTE | 2022-04-26 12:33 | RAD REPORT ---
EXAM DESCRIPTION: CT - Abdomen Pelvis Wo Contrast - 04/26/2022 12:04 pm CLINICAL HISTORY: Abdominal pain. r/o appendicitis COMPARISON: Abdomen Pelvis W Contrast dated 04/25/2022 TECHNIQUE: CT imaging of the abdomen and pelvis was performed without contrast. Solid organ and vasc ular assessment is limited due to lack of IV contrast. All CT scans are performed using dose optimization technique as appropriate and may include automated exposure control or mA/KV adjustment according to patient size. FINDINGS: Mild linear atelectasis both lung bases.Cholecystectomy clips. The liver, spleen, pancreas, adrenal glands and kidneys are within normal limits for a limited non-co ntrast examination. No bowel obstruction, free air, free fluid or abscess. The appendix is normal. IUD is in the uterus. 4 cm left ovarian cyst. The osseous structures are within normal limits. IMPRESSION: No evidence of acute appendicitis. A limited non-contrast examination was performed as detailed.
--- NOTE | 2022-04-26 14:18 | P.HP ---
Date of Service: 04/26/22 PC: This 41-year-old female presented to the emergency room with severe and sudden onset of abdominal pain. HPC: Patient noted she had severe abdominal pain, appeared to be all over, also located in the lower part of her pelvis to some degree. 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 Has recently had IUD placed, has been on hormones, cervical biopsy, may require a uterine biopsy. Social Hx: Allergic to penicillin Sys R: No cough, wheeze, shortness of breath. No chest pain or palpitations. Denies any urinary complaints normal bowel movements O/E: Awake alert vital signs are stable does not appear ill at the moment HEENT: Negative Chest: Air entry equal bilaterally Abd: Soft nontender [place]: Intact Data: White cell count on initial presentation was 18,000, [address] scan yesterday showed a large ruptured ovarian cyst. No change today. Still negative for appendicitis. Impression: Abdominal pain Plan: This patient was admitted for observation and pain control. This morning her lab work has improved and a repeat CT scan does not show appendicitis as her pain initially had been mostly in the right lower quadrant on presentation. No adenopathy or associated features noted. She is tolerating a diet, up ambulating, and much more comfortable than yesterday. I will discharge her at this time. She will follow-up with her own NECK PINNER. I will write for a small amount of pain medicine should she be uncomfortable over the weekend. She knows that if the pain changes or increases or she notices any other symptoms that she will return to the emergency room or contact me. She is comfortable with this arrangement.
--- NOTE | 2022-04-26 14:29 | P.DS ---
Admission Date: 04/25/22 Discharge Date: 04/26/22 Disposition: ROUTINE DISCHARGE Discharge Condition: GOOD Brief History of Present Illness: Patient presented to emergency room with severe abdominal pain for diagnosis and treatment. Hospital Course: This patient, who presented with significant abdominal pain, elevated white cell count, was evaluated in the emergency room. She was found to have a tender abdomen, but a normal CT scan. The only thing of relevance was a left ovarian cyst that appeared to be fluid-filled. She was admitted for observation and pain control. I repeat CT scan today also confirmed there was no evidence of any developing intra-abdominal process. She is up ambulating, feeling much better, her pain is controlled. She is anxious to be discharged. She will follow-up with her own HYDROLOGICAL TECHNICAL OFFICER. Vital Signs/Physical Exam: Temp Pulse Resp BP Pulse Ox 97.7 F 84 16 125/75 97 04/26/22 11:57 04/26/22 11:57 04/26/22 11:57 04/26/22 11:57 04/26/22 11:57 Laboratory Data at Discharge: WBC 9.50 thou/uL (4.3-10.9) 04/26/22 03:48 Hgb 10.9 g/dL (12.0-15.0) L D 04/26/22 03:48 Hct 31.2 % (36.0-45.0) L 04/26/22 03:48 Plt Count 269 thou/uL (152-406) 04/26/22 03:48 Sodium 140 mEq/L (136-145) 04/26/22 03:48 Potassium 3.2 mEq/L (3.5-5.1) L D 04/26/22 03:48 BUN 4 mg/dL (7-18) L 04/26/22 03:48 Creatinine 0.70 mg/dL (0.55-1.02) 04/26/22 03:48 Glucose 119 mg/dL (74-106) H 04/26/22 03:48 Total Bilirubin 0.9 mg/dL (0.2-1.0) 04/26/22 03:48 AST 81 U/L (15-37) H 04/26/22 03:48 ALT 41 U/L (13-56) 04/26/22 03:48 Alkaline Phosphatase 68 U/L (45-117) D 04/26/22 03:48 Lipase 12 U/L (13-75) L 04/26/22 03:48 Home Medications: Losartan Potassium [Cozaar] 25 mg PO DAILY 04/25/22 Physician Discharge Instructions: DC IV, DC home. Diet as tolerated. Pain medicine as needed. Ambulated home. Follow-up with RESERVATIONS AND TICKETING AGENT. Diet: Regular Activity: Ad corazon Followup: Jaci Martínez FNP [Primary Care Provider] -
== END 2022-04-26 15:28 | disposition home or self-care (01) ==
LOC: ER 09:52 → ERHOLD 15:26 → 2ND 16:39
PROVIDERS: ADMIT Surgery; ATTEND Surgery
DX: R10.819 Abdominal tenderness, unspecified site (principal); N83.202 Unspecified ovarian cyst, left side; D72.829 Elevated white blood cell count, unspecified; Z20.822 Contact with and (suspected) exposure to COVID-19
CPT/HCPCS: 96365; 96361; 85025 ×2; 80048; 36415; 80076; 87210; 81003; 83690 ×2; 80053; 74176; 74177; 96375; 99285; 87811; Q9967; J2405 ×5; J0744; J7799 ×3; J7030; G0378

== ENCOUNTER 2022-07-06 21:57 | Emergency (ER) | payer BC ==
--- OUTSIDE RECORDS SUMMARY | 2022-07-06 22:02 | XMS REPORT | Continuity of Care Document ---
:1980 Author Organization [facility] t Address [address] [facility] [facility]. [address] [place] [address] Care Team Providers Name Role Phone MAGDI BONILLA Primary Care Physician Unavailable VANESSA NAIR Attending Clinician Unavailable VANESSA NAIR Attending Clinician Unavailable Cindy Neumann Attending Clinician Unavailable Vanessa Nair MD Attending Clinician VANESSA NAIR Attending Clinician Unavailable Maria D Woods NP Attending Clinician MARIA D WOODS Attending Clinician Unavailable Gale Tran Attending Clinician Unavailable Louis Waddell MD Attending Clinician Vanessa Nair MD Attending Clinician Physician, No Primary or Family Admitting Clinician UnavailMARIA D Sharpe Admitting Clinician Unavailable Payers Payer Name Policy Type Policy Number Effective Date Expiration Date [facility] [place] A B [id number] UNITED MEDICARE [id number] HMO BCBS PPO POS EPO [id number] 2014-02-10 CHOICE 00:00:00 OUT OF STATE BCBS [id number] - PPO - BCBS WELLMED DUAL [id number] COMPLETE SNP [facility]-MEDICAID - [id number] MEDICAID MEDICARE PART A [id number] 2022-05-16 \\T\\ B - MEDICARE 00:00:00 Problems Condition Condition Condition Status Onset Resolution Last Treating Co mments Source Name Details Category Date Date Treatment Clinician Date 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 Will have the patient get neuropsyc hological testing.T he testing will be put on hold for now until next visit. 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 Will continue with Copaxone. 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 Patient to continue with primidone 100 mg at night. Multiple Multiple Disease Active 2009-02 [facility] r sclerosis sclerosis 2-20 [facility] 00:00: of 00 Medicin e Allergies, Adverse Reactions, Alerts Allergy Allergy Status Severity Reaction(s) Onset Inactive Treating Comm ents Source Name Type Date Date Clinician amoxicil DA Active SV HIVES [facility] [place] [facility] d [facility] grape FA Active SV ANAPHYLAXIS [facility] 4[facility] [place] 00:[facility]: d 00 [facility] Not DA Active U UNKNOWN [facility] 4-10 [place] d 36. 00:00: d See 00 Medical Text. Center Not DA Active U UNKNOWN [facility] 4-10 [place] d 80. 00:00: d See 00 Medical Text. Center Grape Propensi Active Anaphylaxis 2020-02 Uni vers ty to 05 ity of adverse 00:00: [place] reaction 00 Medical s Branch Penicill Propensi Active Hives 2020-02 Univer s ins ty to 02-14 ity of adverse 00:00: [place] reaction Medical s Branch PENICILL Drug Active Hives 2020-02 Univers INS Class 02-14 ity of 00:00: Medical Branch GRAPE DRUG Active Anaphylaxis 2020-02 Unive rs INGREDI 02-14 ity of 00:00: Medical Branch Sulfa DA Active U STLSJX (Sulfona 3 mide 00:00: Antibiot 00 ics) Sulfa Propensi Active [facility] Antibiot ty to [address] [place] ics adverse 00:00: of reaction 00 Medicin s to e drug SULFA Allergy Active Hives [facility] (SULFONA 11-05 [facility] MIDE 00:00: Medical ANTIBIOT 00 Center ICS) Sulfa Drug Active Hives [facility] (Sulfona Allergy 11-05 [facility] mide 00:00: Medical Antibiot 00 Center ics) Not DA Active U [facility] Converte 6-21 [place] d 36. 00:00: d See 00 Medical Text. Center Not DA Active U [facility] Converte 6-21 [place] d 80. 00:00: d See 00 Medical Text. Center NO KNOWN Drug Active Univers ALLERGIE Class ity of S [facility] Family History Family Member Diagnosis Comments Start Date Stop Date Source Natural daughter Migraines [facility] Natural daughter Asthma [facility] Maternal aunt Cancer [facility] Maternal grandfather Cancer [facility] Maternal grandmother Cancer [facility] Maternal grandmother [facility] Natural mother Arthritis [facility] Natural mother Migraines [facility] Paternal grandmother Cancer [facility] Paternal grandmother Hyperlipidemia [facility] Social History Social Habit Start Date Stop Date Quantity Comments Source Exposure to Not sure University of SARS-CoV-2 [place] [facility] (event) Branch History of Cigarette Smoker [facility] Juan Luis gandhi of tobacco use Medicine Tobacco use and 2022-05-17 2022-05-17 Smokeless tobacco [facility] College of exposure 00:00:00 00:00:00 non-user Medicine Alcohol intake 2018-10-26 2018-10-26 Current drinker CHULA Wiggins 00:00:00 00:00:00 of [facility] (finding) Sex Assigned At [birth year] CHULA Darden 00:00:00 00:00:00 Medical Center Smoking Status Start Date Stop Date Source Unknown if ever smoked [facility] Ex-smoker 2022-05-17 00:00:00 2022-05-17 00:00:00 [facility] oksana [facility] Medications Ordered Filled Start Stop Current Ordering Indication Dosage Frequency Signature Comments Components Source Medication Medication Date Date Medication? Clinician (SIG) Name Name acetaminoph Yes 650mg Take 2 [place] [facility] en 325 mg 4-07 Tablets by Adis ege tablet 08:42: mouth of 19 every 4 Medicin hours as e needed for Pain. Menthol, Yes Apply Davi Topical 4-07 topically [place] [facility], 08:42: every 12 of (BIOFREEZE) 19 hours. Medici n 4 % GEL e bisacodyl Yes 5mg Take 1 Davi (DULCOLAX) 4-07 Tablet by Adis ege 5 MG EC 08:42: mouth of tablet 19 daily as Medicin needed for e Constipati on. Cranberry Yes 1{capsu Take 1 [place] [facility] 450 MG CAPS 4-07 le} capsule by Co llege 08:42: mouth of 19 daily. Medicin e Ergocalcife Yes 1{capsu Take 1 B aylor rol 1.25 MG 4-07 le} capsule by Co llege ([address] [place]) 08:42: mouth of CAPS 19 every 7 Medicin days. e lactulose Yes 30g Take 45 mL [facility] (CHRONULAC) 4-07 by mouth [facility] 10 GM/15ML 08:42: every 12 of solution 19 hours. Medicin e meclizine Yes 12.5mg Take 1 [facility] (ANTIVERT) 4-07 Tablet by [facility] 12.5 MG 08:42: mouth as of tablet 19 needed Medicin (motion e sickness). Multiple Yes 1{tbl} Take 1 [facility] Vitamin 4-07 Tablet by [place] (MULTIVITAM 08:42: mouth of INS OR) 19 daily. Medicin e Sennosides 0 Yes 2{tbl} Take 2 [place] [facility] (SENNA) 8.6 4-07 Tablets by Co llege MG TABS 08:42: mouth of 19 daily. Medicin e Cholecalcif 0 2022- No Take by Ba ylmonie alex 4-07 04-07 mouth. [place] (VITAMIN 08:33: 00:00 of D3) 5000 36 :00 Medicin UNITS CHEW e divalproex 0 Yes 500mg Take 1 [facility] (DEPAKOTE) 4-06 Tablet by [facility]is e[facility] 500 MG EC 00:00: mouth of tablet 00 daily. Medicin e primidone 0 Yes 100mg Take 2 [facility] (MYSOLINE) 4-06 Tablets by Col lege 50 MG 00:00: mouth of tablet 00 daily. Medicin e levothyroxi 0 Yes 25ug Take 1 [facility] ne 4-03 Tablet by [place] (SYNTHROID) 00:00: mouth of 25 MCG 00 daily. Medicin tablet e trazodone 0 Yes 50mg Take 1 Davi (DESYREL) 4-02 Tablet by [facility] ge 50 MG 00:00: mouth of tablet 00 nightly. Medicin e aripiprazol 0 Yes 2mg Take 1 [facility] e (ABILIFY) 3-26 Tablet by Col lege 2 MG tablet 00:00: mouth of 00 daily. Medicin e Baclofen 5 0 Yes 1{tbl} Take 1 [place] [facility] MG TABS 3-12 Tablet by [place] 00:00: mouth two of 00 times Medicin daily. e Vitamin D, 0 Yes 1{capsu Take 1 [facility] Ergocalcife 2-24 le} capsule by Co llege rol, 1.25 00:00: mouth of MG ([id number] 00 daily. Medicin [place]) CAPS e butalbital- 2020-2020- No 1{tbl} 1 tablet, Univers acetaminoph 02-15- Oral, ity of en-caff 02:30: 01:38 ONCE, 1 [place] (ESGIC) 00 :00 dose, On Medical 50-325-40 [...] 12/15/20 at 2130, BOBBY methylPREDN 2020-02 Yes [id number] Take by [facility] ISolone 4 1-05 mouth ity of mg tablets 00:00: SEE-INSTRU [place] 00 CTIONS. Medical follow Branch package directions butalbital- 2020-02 Yes [id number] 1{tbl} Take 1 Univers acetaminoph 05 tablet by ity of en-caff 00:00: mouth [place] 50-325-40 00 every 4 Medical mg tablet (four) Branch hours as needed for Pain (scale 1-3) or Pain (scale 4-6). valACYclovi 2020-02- No [id number] 1g Take 1 Univers r 1 gram 02-14-13 tablet by ity o f tablet 00:00: 05:59 mouth 2 [place] 00 :00 (two) Medical times Branch daily for 7 days. escitalopra 2022- No TAKE ONE B carlos francis (LEXAPRO) 608 04-07 (1) College 20 MG 00:00: 00:00 TABLET(S) of tablet 00 :00 BY MOUTH Medicin DAILY. e natalizumab 2020- No 300mg Inject 300 [facility] , TYSABRI, 1-14 01-14 mg into Colle ge (TYSABRI) 17:35: 00:00 the vein of 300 MG/15ML 56 :00 once. Medicin injection e propranolol 2019-0 Yes 20mg Take 1 Tab [facility] (INDERAL) 1-14 by mouth 3 [facility] 20 MG 00:00: times of tablet 00 daily. Medicin e propranolol 2019-0 Yes 20mg Take 1 Tab [facility] (INDERAL) 1-14 by mouth 3 [facility] 20 MG 00:00: times of tablet 00 daily. Medicin e escitalopra Yes TAKE ONE [facility] m (LEXAPRO) 1-06 (1) College 20 MG 00:00: TABLET(S) of tablet 00 BY MOUTH Medicin DAILY. e MAVENCLAD, 2018-02 Yes Davi 7 TABS, 10 2-31 College MG TBPK 00:00: of 00 Medicin e MAVENCLAD, 2018-02- No [facility] 7 TABS, 10 2-31 04-07 College MG TBPK 00:00: 00:00 of 00 :00 Medicin e gabapentin 2018-02 Yes TAKE ONE [place] [facility] (NEURONTIN) 1-08 (1) College 300 MG 00:00: CAPSULE(S) of capsule 00 BY MOUTH Medicin TWICE A e DAY. gabapentin 2018-02 Yes TAKE ONE [place] [facility] (NEURONTIN) -08 (1) [place] 300 MG 00:00: CAPSULE(S) of capsule 00 BY MOUTH Medicin TWICE A e DAY. predniSONE 2019- No 1000mg Take 20 B [facility] (DELTASONE) 9-27 01-14 Tabs by [facility] e[facility] 50 MG 00:00: 00:00 mouth of tablet 00 :00 daily. Medicin e gabapentin Yes 300mg Take 1 Cap [facility] (NEURONTIN) 8-14 by mouth Adis e[facility] 300 MG 00:00: two times of capsule 00 daily. Medicin e Cholecalcif Yes Take by [place] [facility] alex 4-22 mouth. [place] (VITAMIN 13:39: of D3) 5000 12 Medicin UNITS CHEW e natalizumab Yes 300mg Inject 300 [facility] , TYSABRI, 4-22 mg into Colleg e (TYSABRI) 13:39: the vein of 300 MG/15ML 12 once. Medicin injection e Cholecalcif 2018- Yes Take by [place] [facility] alex 4-22 mouth. [place] (VITAMIN 13:39: of D3) 5000 12 Medicin UNITS CHEW e escitalopra 2018- Yes 20mg Take 1 Tab Davi m (LEXAPRO) 4-22 by mouth [facility] 20 MG 00:00: daily. of tablet 00 Medicin e escitalopra Yes 10mg Take 1 Tab [facility] m (LEXAPRO) 09-15 by mouth [facility] 10 MG 00:00: daily. of tablet 00 Medicin e escitalopra 2018 2020- No 10mg Take 1 Tab [facility] m (LEXAPRO) 09-15-14 by mouth Col lege 10 MG 00:00: 00:00 daily. of tablet 00 :00 Medicin e VITAMIN D2 Yes TAKE 1 [facility] 50,000 unit 5-23 CAPSULE [facility]ukes capsule 00:00: (50,000 Medical 00 UNITS Center TOTAL) BY MOUTH ONCE A WEEK. VITAMIN D2 Yes TAKE 1 [facility] t 50,000 unit 5-23 CAPSULE [facility]ukes capsule 00:00: (50,000 Medical 00 UNITS Center TOTAL) BY MOUTH ONCE A WEEK. VITAMIN D2 2016- Yes TAKE 1 [facility] t 50,000 unit 5-23 CAPSULE [facility]ukes capsule 00:00: (50,000 Medical 00 UNITS Center TOTAL) BY MOUTH ONCE A WEEK. multivitami Yes 1{tbl} QD Take [address] n per 2-03 tablet by Lukes tablet 10:16: mouth Medical 11 daily. [place] sertraline Yes 25mg QD Take [address] (ZOLOFT) 25 2-03 by mouth Luke s MG tablet 10:16: daily. Medica [address] multivitami Yes 1{tbl} QD Take [address] n per 2-03 tablet by [facility]ukes tablet 10:16: mouth Medical 11 daily. [place] sertraline Yes 25mg QD Take [address] (ZOLOFT) 25 2-03 by mouth Luke s MG tablet 10:16: daily. Medica [address] multivitami Yes 1{tbl} QD Take [address] n per 2-03 tablet by Lukes tablet 10:16: mouth Medical 11 daily. [place] sertraline Yes 25mg QD Take [address] (ZOLOFT) 25 2-03 by mouth Luke s MG tablet 10:16: daily. Medica [address] COPAXONE 40 2015-02 Yes 40mg/mL Inject [address] mg/mL Syrg 0-19 mg/mL as [facility]ukes 00:00: directed . Medical [address] [place] COPAXONE 40 2015-02 Yes 40mg/mL Inject [address] mg/mL Syrg 0-19 mg/mL as [facility]ukes 00:00: directed . [address] COPAXONE 40 2015-02 Yes 40mg/mL Inject [address] mg/mL Syrg 0-19 mg/mL as [facility]ukes 00:00: directed . [address] Vital Signs Vital Name Observation Time Observation Value Comments Source Systolic blood 2022-05-17 106 mm[Hg] [facility] Colleg e pressure 13:26:00 of Medicine Diastolic blood 2022-05-17 76 mm[Hg] [facility] Colle ge pressure 13:26:00 of Medicine Heart rate 2022-05-17 76 /min [facility] 13:26:00 of [facility] Body weight 2022-05-17 82.555 kg stated, unable [facility] Colleg e 13:26:00 to stand of Medicine BMI 2022-05-17 27.67 kg/m2 [facility] 13:26:00 of Medicine Systolic blood 2020-12-16 149 mm[Hg] University of pressure 01:00:[address] [facility] Diastolic blood 2020-12-16 98 mm[Hg] University o f pressure 01:00:[address] [facility] Heart rate 2020-12-16 81 /min [facility] 01:00:[address] [facility] Respiratory rate 2020-12-16 21 /min [facility] 01:00:[address] [facility] Oxygen saturation 2020-12-16 99 /min [facility] in Arterial blood 01:00:00 [facility] by Pulse oximetry [place] Body temperature 2020-12-15 37.17 Alondra [facility] 23:54:[address] [facility] Body height 2020-12-15 170.2 cm [facility] 23:54:[address] [facility] Body weight 2020-12-15 65.772 kg [facility] 23:54:[address] [facility] BMI 2020-12-15 22.71 kg/m2 [facility] 23:54:[address] [facility] Systolic blood 2019-02-23 119 mm[Hg] [facility] Colleg e pressure 16:35:00 of Medicine Diastolic blood 2019-02-23 79 mm[Hg] [facility] ge pressure 16:35:00 of Medicine Heart rate 2019-02-23 93 /min [facility] 16:35:00 of Medicine Body height 2019-02-23 172.7 cm [facility] 16:35:00 of Medicine Body weight 2019-02-23 83.462 kg [facility] 16:35:00 of Medicine BMI 2019-02-23 27.98 kg/m2 [facility] 16:35:00 of Medicine Systolic blood 2018-10-15 97 mm[facility]Hg[facility] of Medicine Diastolic blood 2018-10-15 70 mm[Hg] [facility] ge pressure 17:00:00 of Medicine Heart rate 2018-10-15 85 /min [facility] 17:00:00 of Medicine Body height 2018-10-15 172.7 cm [facility] 17:00:00 of Medicine Body weight 2018-10-15 73.755 kg [facility] 17:00:00 of Medicine BMI 2018-10-15 24.72 kg/m2 [facility] 17:00:00 of Medicine Procedures Procedure Date / Time Performing Clinician Source Performed HEP B CORE ANTIBODY, 2022-05-17 10:00:00 [facility] HEPATITIS B SURFACE AB 2022-05-17 10:00:00 [facility] HEPATITIS B SURFACE 2022-05-17 [facility] QUANTIFERON TB GOLD PLUS 2022-05-17 10:00:[address] VARICELLA ZOSTER IGG 2022-05-17 10:00:00 [facility] VITAMIN D 25 HYDROXY 2022-05-17 10:00:00 [facility] IMMUNOGLOBULIN PROFILE 2022-05-17 10:00:00 [facility] COMPREHENSIVE METABOLIC 2022-05-17 10:00:00 [facility] CBC W/AUTO DIFF WITH 2022-05-17 10:00:00 [facility] HEP B CORE ANTIBODY, 2022-05-17 09:07:44 [facility] HEPATITIS B SURFACE AB 2022-05-17 09:07:44 [facility] HEPATITIS B SURFACE 2022-05-17 09:07:44 [facility] C ollege of ANTIGEN Medicine QUANTIFERON TB GOLD PLUS 2022-05-17 09:07:[address] VARICELLA ZOSTER IGG 2022-05-17 09:07:44 [facility] VITAMIN D 25 HYDROXY 2022-05-17 09:07:44 [facility] IMMUNOGLOBULIN PROFILE 2022-05-17 09:07:44 [facility] COMPREHENSIVE METABOLIC 2022-05-17 09:07:44 [facility] CBC W/AUTO DIFF WITH 2022-05-17 09:07:44 [facility] [address] ANGIOGRAM HEAD 2020-12-16 00:49:[address] [facility] CT ANGIOGRAM NECK 2020-12-16 00:49:[address] [facility] CT HEAD WO CONTRAST 2020-12-16 00:48:58 Maria D Woods [facility] COMP. METABOLIC PANEL 2020-12-16 00:20:00 Maria D Woods [facility] ([id number]) [facility] CBC WITH DIFF 2020-12-16 00:20:00 Maria D Woods [facility] CONSENT/REFUSAL FOR 2020-12-15 23:36:39 Doctor Unassigned, [facility] DIAGNOSIS AND TREATMENT [facility] NOTICE OF PRIVACY 2020-12-15 23:36:22 Doctor Unassigned, [facility] PRACTICES [facility] Plan of Care Planned Activity Planned Date Details Comments Source Future Scheduled 2022-10-[address] [facility] Test 00:00:00 (Season Ended) [code Medical Center = INFLUENZA VACCINE (Season Ended)] Future Scheduled 2022-05-17 HEP B CORE ANTIBODY, Ordered: [employer] Test 09:07:44 TOTAL [code = 27093] 05/17/2022 of angelMD Future Scheduled 2022-05-17 HEPATITIS B SURFACE Ordered: [employer] Test 09:07:44 AB QUAL [code = 05/17/2022 of Medicine 83777-7] Future Scheduled 2022-05-17 HEPATITIS B SURFACE Ordered: [employer] or [employer] Test 09:07:44 ANTIGEN [code = 05/17/2022 [facility] 5196-1] Future Scheduled 2022-05-17 QUANTIFERON TB GOLD Ordered: [employer] Test 09:07:44 PLUS 4 TUBES [code = 05/17/2022 of [facility] Anki 40995-9] Future Scheduled 2022-05-17 VARICELLA ZOSTER IGG Ordered: [facility] College Test 09:07:44 [code = 48699-8] 05/17/2022 of Medicine Future Scheduled 2022-05-17 VITAMIN D 25 HYDROXY Ordered: [facility] Test 09:07:44 [code = 1989-3] 05/17/2022 of Medicine Future Scheduled 2022-05-17 IMMUNOGLOBULIN Ordered: [facility] Co llege Test 09:07:44 PROFILE [code = 05/17/2022 of Medicine 49734-2] Future Scheduled 2022-05-17 COMPREHENSIVE Ordered: [facility] Col lege Test 09:07:44 METABOLIC PANEL [code 05/17/2022 of Med icine = 04094-2] Future Scheduled 2022-05-17 CBC W/AUTO DIFF WITH Ordered: [place] [facility] College Test 09:07:44 PLATELETS [code = 05/17/2022 of Medicin e 75429-1] Future Scheduled 2022-05-17 MRI CERVICAL SPINE W 1 Occurrences [facility] Test 09:07:44 WO CONTRAST [code = starting of Medic ine 39372-0] 05/17/2022 until 12/17/2022 Future Scheduled 2022-05-17 MRI BRAIN W WO 1 Occurrences [facility] C ollege Test 09:07:44 CONTRAST [code = starting of Medicine 04074-4] 05/17/2022 until 12/17/2022 Future Scheduled 2022-05-17 Screening for [facility] Col lege Test 08:29:15 malignant neoplasm of of Med icine breast (procedure) [code = 235563444] Future Scheduled 2022-05-17 COVID-19 Vaccine (#1) [facility] Test 08:29:15 [code = COVID-19 of Medicine Vaccine (#1)] Future Scheduled 2022-05-17 TETANUS SHOT (ADULT) [place] [facility] Test 08:29:15 [code = TETANUS SHOT of Medi cine (ADULT)] Future Scheduled 2022-05-17 Screening for [facility] Col lege Test 08:29:15 malignant neoplasm of of Med icine cervix (procedure) [code = 558461756] Future Scheduled 2022-05-17 Medicare IPPE [facility] Col lege Test 08:29:15 (Welcome to Medicare) of Med icine [code = Medicare IPPE (Welcome to Medicare)] Future Scheduled 2022-05-17 FLU VACCINE > 6 Davi C ollege Test 08:29:15 MONTHS [code = FLU of Medici ne VACCINE > 6 MONTHS] Future Scheduled 2022-02-[address] [facility] Test 00:00:00 (12+) [code = Medical Center DEPRESSION SCREENING (12+)] Future Scheduled 1999-05-[address] [facility] Test 00:[facility] cervix (procedure) [code = 215695005] Future Scheduled 1997 DTAP/TDAP/TD VACCINES [facility] Test 00:00:00 (1 - Tdap) [code = Medical C enter DTAP/TDAP/TD VACCINES (1 - Tdap)] Future Scheduled 1996 HEPATITIS C [facility]CREENING [facility] Test 00:00:00 [code = HEPATITIS C Medical Center SCREENING] Future Scheduled [address] [facility] Test 00:00:00 Counseling and Medical Cente r Screening (12+) [code = Tobacco Cessation Counseling and Screening (12+)] Future Scheduled 1978 COVID-19 VACCINE (#1) [facility] Test 00:00:00 [code = COVID-[address] VACCINE (#1)] Future Scheduled HEP B CORE ANTIBODY, Ordered: [place] [facility] Test TOTAL [code = 54052] 10/15/2018 of angelMD Future Scheduled HEPATITIS B SURFACE Ordered: [facility] [employer] Test AB QUAL [code = 10/15/2018 of Medicine 55389-8] Future Scheduled HEPATITIS B SURFACE Ordered: [facility] [employer] Test ANTIGEN [code = 10/15/2018 of Medicine 5196-1] Future Scheduled HEPATITIS C ANTIBODY Ordered: [place] [facility] Test [code = 72971-3] 10/15/2018 of Medicine Future Scheduled HIV AB/AG 4TH GEN W Ordered: [facility] Test RFLX [code = 49985-6] 10/15/2018 of Med icine Future Scheduled MAMMOGRAM ANNUAL [facility] College Test [code = MAMMOGRAM of Medicin e ANNUAL] Future Scheduled TETANUS SHOT (ADULT) [place] [facility] College Test [code = TETANUS SHOT of Medi cine (ADULT)] Future Scheduled HIV SCREENING [code = [facility] Test HIV SCREENING] of Medicine Future Scheduled CERVICAL CANCER [facility] C ollege Test SCREENING 3 YEAR of Medicine FOLLOW UP [code = CERVICAL CANCER SCREENING 3 YEAR FOLLOW UP] Future Scheduled FLU VACCINE > 6 [facility] C ollege Test MONTHS [code = FLU of Medici ne VACCINE > 6 MONTHS] Future Scheduled MAMMOGRAM ANNUAL [facility] Test [code = MAMMOGRAM of Medicin e ANNUAL] Future Scheduled TETANUS SHOT (ADULT) [place] [facility] Test [code = TETANUS SHOT of Medi cine (ADULT)] Future Scheduled BMI FOLLOW UP PLAN [facility] r College Test [code = BMI FOLLOW UP of Med icine PLAN] Future Scheduled CERVICAL CANCER [facility] C ollege Test SCREENING 3 YEAR of Medicine FOLLOW UP [code = CERVICAL CANCER SCREENING 3 YEAR FOLLOW UP] Future Scheduled FLU VACCINE > 6 [facility] C ollege Test MONTHS [code = FLU of Medici ne VACCINE > 6 MONTHS] Future Scheduled MRI BRAIN W WO 1 Occurrences [facility] C ollege Test CONTRAST [code = starting of Medicine 26872-3] 10/15/2018 until 05/16/2019 Future Scheduled MRI CERVICAL SPINE W 1 Occurrences [facility] [employer] Test WO CONTRAST [code = starting of Medic ine 49226-9] 10/15/2018 until 05/16/2019 Encounters Start End Encounter Admission Attending Care Care Encounter Source Date/Time Date/Time Type Type Clinicians Facility Department ID 2022-07-26 2022-07-26 Inpatient Ernst NAIR JUDY [facility] [id number] [facility] 09:15:00 09:15:00 [id number] 2022-07-09 2022-07-09 Outpatient ESTELA KRISHNAMURTHY [facility] [id number] [facility] 00:00:00 00:00:00 VANESSA 2022-07-09 2022-07-09 Outpatient ESTELA KRISHNAMURTHY [facility] [id number] [facility] 00:00:00 00:00:00 VANESSA 2022-05-23 2022-05-23 Outpatient BONIFACIO MISHEL Neumann MILA [id number] [facility] 05:43:00 05:43:00 Cindy tobar [facility] 2022-05-20 2022-05-20 Outside [facility] [id number] 00:00:00 00:00:00 Orders [facility] 2022-05-20 2022-05-20 Outside [facility] [id number] 00:00:00 00:00:00 Orders [facility] 2022-05-17 2022-05-17 Office OSCAR NAIR [id number] [facility] 08:19:32 14:39:51 Visit VANESSA AMBULATOR 350.1.13.21 College Y 0.2.7.2.686 of [id number] [facility] 830 e 2022-05-17 2022-05-17 [id number] 00:00:00 00:00:00 Only [facility] 2022-05-17 2022-05-17 [facility] [id number] 00:00:00 00:00:00 Only [facility] 2020-12-15 2020-12-15 Emergency [facility] [id number] [employer] 19:01:00 21:07:00 Maria D CASPER 350.1.13.10 ity [facility] 4.2.7.2.686 [facility] [id number] [place] [address] [address] 2020-12-15 2020-12-15 Emergency X [facility] ERT [id number] [facility] 19:01:00 21:07:00 MARIA D tracey of [facility] 2020-06-06 2020-06-06 Outpatient BONIFACIO Tran, [facility] [id number] [facility] 04:08:48 04:08:48 Gale Thompson [facility] 2019-02-23 2019-02-23 Office NiteshagOSCAR adhikari [id number] [facility] 10:32:32 15:01:40 Visit Louis AMBULATOR 350.1.13.21 College Y 0.2.7.2.686 of [id number] [facility] 800 e 2018-10-15 2018-10-15 Office OSCAR Nair [id number] [facility] 10:44:27 12:06:39 Visit Vanessa Rowley AMBULATOR 350.1.13.21 College Y 0.2.7.2.686 of [id number] [facility] louise 830 e Results Test Description Test Time Test Comments Results Result Comments Source SURGICAL 2022-05-24 17:16:00 Test Item Value Reference Range Interpretation Comme nts SURGICAL RUN DATE: (test 05/24/22 MISHEL Sanchez d - LAB PAGE 1 RUN TIME: 1716 Specimen Inquiry RUN USER: INTERFACE code = PATIENT: KIRAN LAIRD LOC: ANGELITO U #: [id number] AGE/SX: 42/F ROOM: RE05/23/22[facility] DR: Moshe Neumann MD : 78 BED: DIS: STATUS: [facility] TLOC: SPEC #: [id number] RECD: 05/23/221113 STATUS: CHASE CASANOVA #: [id number] ADIS: 05/23/22947 [facility] DR: Cindy Neumann MD SP TYPE: SURGICAL OTHR DR: Magdi Bonilla ORDERED: 92661, ANATOMIC SPEC, SPECIM EN TRACK COPIES TO: Magdi Bonilla [address] [facility] [address] [place] [address] Cindy Johnson MD 208 [facility] [address] [place] [id number] PROCEDURES: 883 07 (05/24/22) SPECIMEN TRACK (05/23/22) TISSUES: CERVIX - CERVIZ,UTERUS,BILATERAL TUBE S FINAL DIAGNOSIS Uterus (95 g), fallopian tubes, hysterectomy and bilateral salpingectomy: - C ervix, 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 Comment: Negative for atypia/malignancy. Sugge st clinical correlation. GROSS DESCRIPTION Uterus with bilateral fallopian tubes. Received is a uterus with detached fallopian tubesthat weighs 95 g and measures cornu to cornu 5.3, posterio r to anterior 4 cm and fundus tocervix 8.7 cm. The cervix measures 3 x 3.5 cm with a cervical os tr ansverse diameter of 0.6cm. It is bivalved to reveal a pink cervical canal measuring 2.7 cm in [facility]. Theendometrial cavity measures 3.2 x 2.2 cm and covered by endometrium of 0.3 cm. The u terinewall has a maximum thickness 2.7 cm. Cut sections reveal a ill-defined nodular surface in CONTINUED ON NEXT PA GE RUN DATE: 05/24/22 [facility] Laura d - LAB PAGE 2 RUN TIME: 1717 Specimen Inquiry RUN USER: INTERFACE SPEC #: [id number]:[id number] PATIENT: KIRAN MCKEON #[id number] (Continued) -- GROSS DESCRIPTION (Contin ued) the posterior wall. The serosal surface is smooth and glistening. Also present in the samecont ainer are two detached segments of fallopian tubes. Laterality not specified. Theshortest segme nt with fimbriated end and paratubal cyst measures 2.5 cm in length and has adiameter of 0.8 cm. The paratubal cyst is filled with clear fluid measuring 1 cm. The 2ndfallopian tube with fimbr iated end measures 4 cm in length and has a diameter of 0.6 cm. A1 posterior cervixA2 anterior cervix A3-A4 posterior endomyometrium with ill- defined nodular surface A5 anterior endomyometriumA6 po sterior reflection A7 1st fallopian tube cut surface with bisected fimbriated end and paratubal cyst A8 2nd fallopian tube cut surface with entire bisected fimbriated end Technical tissue process ing and slide preparation performed at [facility],[address], [place] [address] Unless gross only, the diagnosis is based upon microscopic examination.Immunohistochemistry: This test was developed and its performance characteristicsdetermined by this laboratory. It has not been approved nor does it need approval by the USFDA. Appropriate posit wendi and negative controls are reviewed and judged to be acceptable.This laboratory is certified unde r the Clinical Laboratory Improvement Amendments (CLIA-88)as qualified to perform high complexity clin ical laboratory testing. MICROSCOPIC DESCRIPTION Microscopic examination is performed on all specimen s and the findings areincorporated into the final diagnosis. Please see diagnosis for findings. CLIN ICAL INFORMATION Dysmenorrhea, pelvic pain, abnormal uterine bleeding Signed SIGNATURE ON FILE Gabe Saleh 05/24/22 1716 END OF REPORT CBC W/AUTO [id number] 07:36:00 Test Item Value Reference Range Interpretation Comments WHITE BLOOD CELL (test code = 14.5 K/mm3 3.5-11.0 H WBC) RED BLOOD CELL (test code = 4.03 M/mm3 4.70-6.10 L RBC) HEMOGLOBIN (test code = HGB) 13.1 G/DL 10.4-14.9 N HEMATOCRIT (test code = HCT) 39.2 % 31.5-44.1 N MEAN CELL VOLUME (test code = 97.3 Fl 84.5-98.6 N MCV) MEAN CELL HGB (test code = MCH) 32.5 pg 27.0-34.2 N MEAN CELL HGB CONCETRATION 33.4 G/DL 31.5-34.0 N (test code = MCHC) RED CELL DISTRIBUTION WIDTH 11.9 SD 11.5-14.5 N (test code = RDW) PLATELET COUNT (test code = 357 K/mm3 150-450 N PLT) MEAN PLATELET VOLUME (test code 9.70 fL 7.0-10.5 N = MPV) NEUTROPHIL % (test code = NT%) 57.2 % 40-76 N IMMATURE GRANULOCYTE % (test 0.3 % 0.0-5.0 N code = IG%) LYMPHOCYTE % (test code = LY%) 17.5 % 20.5-51.1 L MONOCYTE % (test code = MO%) 6.1 % 1.7-9.3 N EOSINOPHIL % (test code = EO%) 17.7 % 0.0-6.0 H BASOPHIL % (test code = BA%) 1.2 % 0.0-2.0 N NUCLEATED RBC % (test code = 0.0 /100WBC% 0.0-1.0 N NRBC%) NEUTROPHIL # (test code = NT#) 8.3 K/mm3 1.8-7.6 H IMMATURE GRANULOCYTE # (test 0.05 x10 3/uL 0.00-0.03 H code = IG#) LYMPHOCYTE # (test code = LY#) 2.5 K/mm3 0.6-3.2 N MONOCYTE # (test code = MO#) 0.9 K/mm3 0.3-1.1 N EOSINOPHIL # (test code = EO#) 2.6 K/mm3 0.0-0.4 H BASOPHIL # (test code = BA#) 0.2 K/mm3 0.0-0.1 H NUCLEATED RBC # (test code = 0.0 K/mm3 0.0-0.1 N NRBC#) MANUAL DIFF REQUIRED (test code NO DIFF/SCN CRITERIA = MDIFF) RBC [id number] 07:36:00 Test Item Value Reference Range Interpretation Comments PLATELET ESTIMATE (test ADEQUATE THOUSAND ADEQUATE code = PLTEST) PLATELET MORPHOLOGY (test NORMAL code = PLTMORPH) HCG SERUM [id number] 07:04:00 Test Item Value Reference Range Interpretation Comments HCG SERUM QUAL (test SERUM NEGATIVE SCREEN NEGATIVE code = HCGQL) UR HCG [id number] 06:50:00 Test Item Value Reference Range Interpretation Comments UR HCG QUAL (test code = HCGQLU) NEGATIVE NEGATIVE URINALYSIS [id number] 06:49:00 Test Item Value Reference Range Interpretation Comments UA GLUCOSE DIPSTICK (test NEGATIVE mg/dL NEG code = DGLUU) UA BILIRUBIN DIPSTICK (test NEGATIVE mg/dL NEG code = BILU) UA KETONE DIPSTICK (test NEGATIVE mg/dL NEG code = KETU) UA SPECIFIC GRAVITY (test 1.020 SG 1.005-1.030 code = SGU) UA BLOOD DIPSTICK (test 3+ mg/DL NEG A code = YARA) UA PH DIPSTICK (test code = 6.0 pH UNITS 5.0-7.0 LEAH) UA PROTEIN DIPSTICK (test NEGATIVE mg/dL NEG code = PROU) UA UROBILINIOGEN DIPSTICK 0.2 mg/dL <2.0 (test code = URO) UA NITRITE DIPSTICK (test NEGATIVE SCREEN NEG code = CECILIA) UA LEUKOCYTE ESTERASE NEGATIVE Leuk/mcL NEGATIVE DIPSTICK (test code = LEUU) Urine Specimen Type: Clean CatchCOMP. METABOLIC PANEL ([id number])2020-12-16 00:43:02 Test Item Value Reference Range Interpretation Comments NA (test code = 137 mmol/L 135-145 5670920082) K (test code = 3.6 mmol/L 3.5-5.0 8187361376) CL (test code = 104 mmol/L 98-108 4804270274) CO2 TOTAL (test code 25 mmol/L 23-31 = 1710957513) AGAP (test code = 2-16 8397481613) BUN (test code = 7 mg/dL 7-23 5185455413) GLUCOSE (test code = 85 mg/dL 70-110 7011671723) CREATININE (test code 0.73 mg/dL 0.50-1.04 = 2543415240) TOTAL BILI (test code 0.6 mg/dL 0.1-1.1 = 3404116565) CALCIUM (test code = 9.9 mg/dL 8.6-10.6 9844121058) T PROTEIN (test code 7.6 g/dL 6.3-8.2 = 6192823346) ALBUMIN (test code = 4.6 g/dL 3.5-5.0 8773305029) ALK PHOS (test code = 63 U/L 34-122 6997166081) ALTv (test code = 13 U/L 535 1742-6) AST(SGOT) (test code 25 U/L 13-40 = 6598593396) eGFR (test code = mL/min/1.73m2 2858285483) NELDA (test code = NELDA) Association of Glomerular Filtration Rate (GFR) and Staging of Kidney Disease* + + +- +| GFR (mL/min/1.73 m2) ?| With Kidney Damage ?| ?Without Kidney Damage+ ------+ ----+ ------+| ?>90 ?| ?Stage one ?| ? Normal ?+ -+ + -+| ?60-89 ?| ?Stage two ?| ? Decreased GFR ? + + +- +| ?30-59 ?| ?Stage three ?| ? Stage three ? + + +- +| ?15-29 ?| ?Stage four ? | ? Stage four ?+ -+ + -+| ?<15 (or dialysis) ? ?| ?Stage five ? | ? Stage five ?+ -+ + -+ *Each stage assumes the associated GFR level [...] or urine or abnormalities in imaging tests). [facility] WITH [id number] 00:37:02 Test Item Value Reference Range Interpretation Comments WBC (test code = See_Comment H [Automated 9006-2) message] The sy stem which generated this result transmitted reference range : 4.30 - 11.10 10*3/?L. The reference range was not used to interpret this result as normal/abnormal . RBC (test code = See_Comment [Automated 519-8) message] The sy stem which generated this [...] RDW-SD (test code = 43.8 fL 39.0-49.9 59603-2) RDW-CV (test code = 12.4 % 12.0-15.5 788-0) PLT (test code = See_Comment [Automated 777-3) message] The sy stem which generated this result transmitted reference range : 166 - 358 10*3/ ?L. The reference r mary was not used to interpret this result as normal/abnormal . MPV (test code = 9.4 fL 9.5-12.9 L 94953-4) NRBC/100 WBC (test See_Comment [Automat ed code = 0977788369) message] The system which generated this result transmitted reference range : 0.0 - 10.0 /100 WBCs. The refer ence range was not u sed to interpret th is result as normal/abnormal . NRBC x10^3 (test code <0.01 See_Comment [Auto mated = 1600725412) message] The s ystem which generated this result transmitted reference range : 10*3/?L. The reference range was not used to interpret this result as normal/abnormal . GRAN MAT (NEUT) % 48.0 % (test code = 770-8) IMM GRAN % (test code 0.40 % = 7101678998) LYMPH % (test code = 30.3 % 736-9) MONO % (test code = 6.1 % 5905-5) EOS % (test code = 13.9 % 713-8) BASO % (test code = 1.3 % 706-2) GRAN MAT x10^3(ANC) 5.64 10*3/uL 1.88-7.09 (test code = 1548783651) IMM GRAN x10^3 (test 0.05 10*3/uL 0.00-0.06 code = 3092110867) LYMPH x10^3 (test code 3.56 10*3/uL 1.32-3.29 H = 731-0) MONO x10^3 (test code 0.72 10*3/uL 0.33-0.92 = 742-7) EOS x10^3 (test code = 1.64 10*3/uL 0.03-0.39 H 711-2) BASO x10^3 (test code 0.15 10*3/uL 0.01-0.07 H = 704-7) Lab Interpretation Abnormal (test code = 27367-4) [facility], NECK, WITHOUT / WITH IV [id number] 17:04:00Reason for Exam:->MSFINAL REPORT MR, ORBIT, FACE, [...] unremarkable MRIof the orbits. Signed: Michael Vazquez MDReport Verified Date/Time: 10/26/2018 17:04:38 Reading Location: [facility] Room [address] [place] [address] MR, SPINE, CERVICAL, WITHOUT / WITH IV [id number] 16:57:00FINAL REPORT MR, SPINE, CERVICAL, WITHOUT / [...] T2 hyperintense cord lesions. Signed: Michael Vazquez MDReport Verified Date/Time: 10/26/2018 16:57:19 Reading Location: [facility] Room [address] [place] [address] MR, BRAIN, WITHOUT / WITH IV [id number] 16:48:00FINAL REPORT MR, BRAIN, WITHOUT / WITH [...] Vazquez Verified Date/Time: 10/26/2018 16:48:49 Reading Location: [place] [address] Notes Date/Time Note Provider Source 2022-05-23 18:56:00-00:00 [id number] [address] PATIENT NAME: KIRAN MCKEON ADMIT DATE: ACCOUNT NO: [id number] ROOM NO: AGE: 42 REPORT TYPE: OPERATIVE REPORT SEX: F ADMITTING PHYSICIAN: ATTENDING PHYSICIAN: Cindy Neumann MD OPERATION DATE: 05/23/2022 PREOPERATIVE DIAGNOSES: AUB -- O/A, dysmenorrhea , pelvic pain. POSTOPERATIVE DIAGNOSES: AUB -- O/A, dysmenorrhe a, pelvic pain. PROCEDURES PERFORMED: Robotic-assisted total lap aroscopic hysterectomy, bilateral salpingectomy, and left ovariopexy. SURGEON: Cindy Neumann MD HEALTH EDUCATION ASSISTANT: Lenka Loya. ANESTHESIA: General endotracheal. FINDINGS: No endometriosis was noted. Left ovary slightly more mobile and possible torsion and there was a cyst, so a left ovariopexy was performed. No abnormal findings on both ovaries, so they were both preserved. COMPLICATIONS: None. ESTIMATED BLOOD LOSS: 25 mL SPECIMEN: Uterus and tubes. FLUIDS: 1000 LR. URINE OUTPUT: 175. ESTIMATED BLOOD LOSS: 25 mL APPROACH: Robotic laparoscopic. WOUND CLASS: Clean contaminated. PLAN: Discharge home. INDICATIONS FOR PROCEDURE: T he patient is a 42-year-old with bleeding and pain, 3, para 3, 3 vaginal deliveries, history of cryo in 1997, ASC-H Pap, recently colposcopy biopsy only showed LOUISE 1 and ECC was negative. She had an IUD use for 4 years, which later did not control her symptoms. Complaining of right lower quadrant pain and dysmenorrhea. Left ovarian cyst that was PATIENT NAME: KIRAN MCKEON ACCOUNT #: [id number] hemorrhagic and question of possible endometrios is. 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 She was offered all the different treatment options. The patient wanted to proceed with hysterectomy, possible o ophorectomy, endometriosis excision if found, oophorectomy if abnormality found on the ovary. PROCEDURE IN DETAIL: She was consented and broug ht to the OR. She has history of HIVES WITH PENICILLIN AND AMOXICILLIN. Howeve r, Ancef was given in the OR and she tolerated it well. 2 grams were given. S CDs were placed. She was placed in supine fashion on the operatin g table. General anesthesia was given. She was placed in dorsal lit hotomy position using Carlitos stirrups, arms tucked by the side. Positioning checked. SCDs started. Chl oraPrep for the abdomen and vulva, vagina, and perineum prepped with Betadin e and draped in a sterile fashion. Speculum placed to expose the cervix. Anterior l ip was grasped with 2 Allis clamps, dilated to 16-Telugu. Large VCare introd uced into place and fixed in place. Cano placed to drain the bladder. This a nelson was draped. A 1 cm supraumbilical incision made with scalpel using open laparoscopy technique. Fascia was incised and tagged with 0 Vicryl sutures. Anterior peritoneum entered sharply. S retractors were pl aced. Caden introduced and after adequate insufflation, two 8 ports in the same line on the left and right were placed. Two right robotic trocars, one robo tic trocar and an AirSeal left were placed. Once the robot was docked from the right side, t argeting was completed, all instruments were placed without any problems und er direct visualization. Left arm with fenestrated bipolar. Right medi al arm with scissors and right lateral arm with ProGrasp. The patient was placed in T-rachael. The bowel had some adhesions of the right lower quadrant. These were taken down sharply. S mall bowel adhesions were taken down and then the ovary was able to be ret racted better. Colon also had to be retracted for better visualization of the posterior cuff and noted anatomic distortion of the ureters and no endome triosis. Ovaries completely appeared to be benign and normal. The left ovary had more laxity on its pedicle. Evidence of tubal ligation, so started with performing a salpingectomy starting at the distal fimbriated end towards the proxima l part. The ends were dissected and the distal end was handed out. The n, round ligament and uterine ligaments were taken down on the left si de. Peritoneum opened sharply entering the bladder flap and posteri ginna to the cup and this was isolated and cauterized and cut with the help of bipolar. The vessel huseyin ler was used in this case. Similar dissection was performed on the opposite side, opened up the paratubal peritoneum. Salpingectomy was performed with the bipolar and monopolar. The round ligament was cauterized and cut with the f enestrated graspers and scissors. Then, anterior peritoneum opened up. C omplete bladder flap fully raised. Bladder dissected inferiorly to expose t he anterior vaginal wall. Posteriorly, the peritoneum taken down to the ri ght uterosacral ligament was identified, cauterized and cut with the help of bipolar. Once all this was done, cardinal ligaments were cauterized and cut as well on both sides. PATIENT NAME: KIRAN MCKEON ACCOUNT #: [id number] Circumferential colpotomy with a monopolar hook blade. Specimen was removed through the vagina. Next, left ovary and right ovary were both intact and well vascularized. After vaginal occluder was p laced, vaginal cuff was closed with help of simple 0 Vicryl sutures at both ends and [id number]-[id number]-[id number] sutures with 2-0 V-Loc in two layers imbricating the first suture line. Thorough irrigation and suction were performed a nd unremarkable. Both ureters had normal ureteric action. All the trocars were removed after desufflating the abdominal distention. Gas was also removed through the umbilical port. Umb ilical port fascia was closed with 0 Vicryl sutures tied to each other and int errupted 4-0 Vicryl at all incision sites. Cano was removed. Vaginal bulb was removed. The patient was recovered from anesthesia and taken to PACU in stable condition . was debriefed about the procedure. Ovariopexy was performed. The pedicle was very l ax. 0 Vicryl suture was taken and incision was made under the left round ligam ent and suture was passed through the medial ovary to the base of the left round ligament and tied down. Dictated By: Cindy Neumann MD Date Dictated: 05/23/2022 18:56:20 Date Transcribed: 05/23/2022 21:21:15 JOSH/KATHRYN/MAICO Receipt ID: [id number] Authenticated and Edited by Cindy Neumann MD On 06/06/22 5:18:33 PM at 0521 PATIENT NAME: KIRAN MCKEON ACCOUNT #: [id number] 2022-05-23 11:11:00-00:00 [facility] ([facility]) Brief Op Note REPORT#:[id number] REPORT STATUS: Signed DATE:05/23/22 TIME:1111 PATIENT: KIRAN MCKEON UNIT #: [id number] ROOM/BED: : 78 AGE: 42 SEX: F ATTEND: Sa river Neumann MD ADM AUTHOR: Cindy Neumann MD * ALL edits or amendments must be made on the oDesk/computer document * Op/Inv Proc Note - Brief Pre-procedure diagnosis: AUB-O/A, dysmenorrhea. pelvic pain Post-procedure diagnosis: same as pre procedure dx Procedures performed: RTLH BS, Left ovariopexy Primary Surgeon: florencio Skirt Clipper(s): Lenka Loya Anesthesia: general anesthesia Findings: no endo, left ovary slightly more mobile, ovario pexy fdone no abnormal findings on both ovaries, so, preser josee Complications: none Estimated blood loss in ml's: 25 Specimens removed/altered: uterus tubes Fluids: 1000 lr Urine output: 175 Approach: laparoscopic, robot Wound class: clean-contaminated Disposition: plan to D/C home Electronically Signed by Cindy Neumann MD o n 05/23/22 at 1113 [facility] [[email or web address]] #: [id number] END OF REPORT"
[2022-07-06 23:02] LABS: Absolute Lymphocytes (CBC) 3.7 K/uL (0.7-4.9); Hematocrit 37.2 % (36.0-45.0); Lymphocytes % 27.8 % (15.3-44.8); MCV 95.5 fL (80-100); MPV 7.9 fL (7.6-11.3); RBC Red Blood Cell Count 3.89 M/uL (3.86-4.86)
[2022-07-06 23:17] LABS: Potassium 3.1 mEq/L (3.5-5.1)
[2022-07-06] MEDS ORDERED: FENTANYL CITR 100 MCG/2 ML ONE (23:18)
[2022-07-07] MEDS ORDERED: CLINDAMYCIN 900MG/D5W 900 MG/50 ML IVPB IV ONE (00:33)
[2022-07-07] MEDS ORDERED: LIDOCAINE 1% W/EPI 1:100,000 50 ML MDV ONE (00:33)
[2022-07-07] MEDS ORDERED: BUPIVACAINE 0.5% PF 10 ML VIAL ONE (00:33)
--- NOTE | 2022-07-07 00:47 | EDPHYS ---
Physician Documentation [facility] Name: Barbara Mckeon Age: 42 yrs Sex: Female : 1980 Arrival Date: 07/06/2022 Time: 21:57 Bed 12 Private MD: ED Physician Saurabh Nickerson HPI: 07/06 23:00 This 42 yrs old Female presents to ER via Ambulatory with complaints of Wound Check. cp 23:00 Patient presents to ED for recheck of: surgical incisions. The affected area is on the abdomen. Patient presents to ED 5 weeks post hysterectomy surgery by DR Neumann with concern for infection of incisions. Patient had laparoscopic surgery and reports drainage from umbilical incision. 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 Last tetanus immunization: < 10 years ago Flu vaccine is not up to date. - Social history:: Smoking status: Patient reports the use of cigarette tobacco products, denies chronic smoking, but will smoke occasionally, Patient uses alcohol, occasionally. Patient/guardian denies using street drugs. ROS: 23:05 Constitutional: Negative for chills, fever, poor PO intake. cp 23:05 Eyes: Negative for injury, pain, redness, and discharge. cp 23:05 Respiratory: Negative for cough, shortness of breath, wheezing. 23:05 Abdomen/GI: Negative for vomiting, diarrhea, constipation. 23:05 : Negative for urinary symptoms. 23:05 Skin: Positive for cellulitis, of the abdomen. 23:05 Neuro: Negative for altered mental status, dizziness, headache, weakness. 23:05 All other systems are negative. Exam: 23:10 Constitutional: The patient appears in no acute distress, alert, awake, non-toxic, well cp developed, well nourished. 23:10 Head/Face: Normocephalic, atraumatic. cp 23:10 Eyes: Periorbital structures: appear normal, Conjunctiva: normal, no exudate, no injection, Sclera: no appreciated abnormality, Lids and lashes: appear normal, bilaterally. 23:10 ENT: External ear(s): are unremarkable, Nose: is normal, Mouth: Lips: moist, Oral mucosa: pink and intact, moist, Posterior pharynx: is normal, airway is patent, no erythema, no exudate. 23:10 Chest/axilla: Inspection: normal. 23:10 Cardiovascular: Rate: normal, Rhythm: regular. 23:10 Respiratory: the patient does not display signs of respiratory distress, Respirations: normal, no use of accessory muscles, no retractions, labored breathing, is not present, Breath sounds: are clear throughout, no decreased breath sounds, no stridor, no wheezing. 23:10 Abdomen/GI: noted laparoscopic incisions to umbilical and right mid and lower abdomen. there is mild erythema surrounding these incisions with mild induration of the umbilical incision. clear drainage expressed from umbilicus. Vital Signs: 22:21 BP 169 / 96; Pulse 88; Resp 16; Temp 98.1; Pulse Ox 100% on R/A; Weight 65.77 kg; pf1 Height 5 ft. 7 in. ; Pain 0/10; 22:21 Body Mass Index 22.71 (65.77 kg, 170.18 cm) pf1 22:21 Pain Scale: Adult pf1 MDM: 22:32 Patient medically screened. 07/07 00:47 Data reviewed: vital signs, nurses notes, lab test result(s), radiologic studies, cp ultrasound. 00:47 Consideration of Admission/Observation Escalation of care including cp admission/observation considered. Management of patient was discussed with the following: Barrel Reamer: DR Neumann who will see patient in clinic Friday for reevaluation. ED course: Patient declines having needle aspiration and/or I\T\D of umbilical area where concern for abscess is expressed. IV antibiotics given and will discharge with RX for oral clindamycin due to PCN allergy. Patient to return to Ed worsening symptoms, otherwise f/u with DR Neumann Friday. 07/06 22:39 Order name: CBC with Diff; Complete Time: 23:23 cp 07/06 23:23 Interpretation: Normal except: WBC 13.30. 07/06 22:39 Order name: BMP; Complete Time: 23:23 cp 07/06 23:23 Interpretation: Normal except: K 3.1. cp 07/06 23:30 Order name: Wound Culture cp 07/06 22:39 Order name: US Extrmty Nonvasular Limited: umbilical area for abscess cp 07/06 22:39 Order name: IV; Complete Time: 22:52 cp 07/07 00:46 Order name: Dressing - Wound: wet to dry; Complete Time: 01:37 cp Administered Medications: 07/06 23:15 Drug: fentaNYL (PF) IVP 25 mcg Route: IVP; Site: right antecubital; pf1 07/07 07:14 Follow up: Response: No adverse reaction as6 00:58 Drug: Clindamycin IVPB 900 mg Route: IVPB; Infused Over: 30 mins; Site: right cg antecubital; 07:14 Follow up: Response: No adverse reaction; IV Status: Completed infusion; IV Intake: 81dely2 01:37 CANCELLED (Patient Refused): Lidocaine-Epinephrine Infiltration -1%: (1:100,000) 5 ml pf1 20 ml Infiltration once; to bedside 01:37 CANCELLED (Patient Refused): Bupivacaine Infiltration (0.5 %) 5 ml 10 ml Infiltration pf1 once Disposition Summary: 07/07/22 00:47 Discharge Ordered Location: Home cp Problem: new cp Symptoms: have improved cp Condition: Stable cp Diagnosis - Cellulitis of abdominal wall cp Followup: cp - With: Cindy Neumann MD - When: 2 - 3 days - Reason: Wound Recheck Discharge Instructions: - Discharge Summary Sheet cp - Cellulitis, Adult cp Forms: - Medication Reconciliation Form cp - Thank You Letter cp - Antibiotic Education cp - Prescription Opioid Use cp Prescriptions: - Clindamycin HCl 300 mg Oral Capsule - take 1 capsule by ORAL route every 6 hours for 10 days; 40 capsule; Refills: 0, cp Product Selection Permitted Addendum: 07/09/2022 04:23 Co-signature as Attending Physician, Saurabh Nickerson MD I agree with the assessment s p4 and plan of care. I reviewed the patient's care provided by the Advanced Practice Provider and agree with the diagnosis and treatment plan. Signatures: Dispatcher [employer] EDJose Castillo PA PA cp Garcia, Cindy, RN RN cg Finley, Pamala, RN RN pf1 Saurabh Nickerson MD MD sp4 Keven Meade RN as6 Corrections: (The following items were deleted from the chart) 07/07 01:37 07/06 23:29 Lidocaine-Epinephrine Infiltration -1%: (1:100,000) 5 ml 20 ml Infiltration pf1 once; to bedside ordered. 07/07 01:37 07/06 23:29 Bupivacaine Infiltration (0.5 %) 5 ml 10 ml Infiltration once ordered. pf1
--- NOTE | 2022-07-07 00:47 | ER ---
Nurse's Notes [facility] Name: Barbara Mckeon Age: 42 yrs Sex: Female : 1980 Arrival Date: 07/06/2022 Time: 21:57 Bed 12 Private MD: Diagnosis: Cellulitis of abdominal wall Presentation: 07/06 22:21 Chief complaint: Patient states: umbilical redness, with yellow to red drainage,onset 2 pf1 days ago. Patient stated had hysterectomy [address] Neumann and was treated with Bactrim 1 month ago. Coronavirus screen: Vaccine status: Patient reports being unvaccinated. Client denies travel out of the [place] in the last 14 days. At this time, the client does not indicate any symptoms associated with coronavirus-19. Ebola Screen: Patient negative for fever greater than or equal to 101.5 degrees Fahrenheit, and additional compatible Ebola Virus Disease symptoms. Initial Sepsis Screen: Does the patient meet any 2 criteria? No. Patient's initial sepsis screen is negative. Does the patient have a suspected source of infection? No. Patient's initial sepsis screen is negative. Risk Assessment: Do you want to hurt yourself or someone else? Patient reports no desire to harm self or others. 22:21 Method Of Arrival: Ambulatory pf1 22:21 Acuity: ANDREW 4 pf1 07/07 07:13 Onset of symptoms was July 04, 2022. as6 07:13 Onset of symptoms was July 04, 2022. as6 Triage Assessment: 07/06 22:30 General: Appears in no apparent distress. Behavior is calm, cooperative. Pain: Denies as6 pain. Derm: Reports drainage from hysterectomy incision site. 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 Last tetanus immunization: < 10 years ago Flu vaccine is not up to date. - Social history:: Smoking status: Patient reports the use of cigarette tobacco products, denies chronic smoking, but will smoke occasionally, Patient uses alcohol, occasionally. Patient/guardian denies using street drugs. Screenin/28 07:11 [facility] ED Fall Risk Assessment (Adult) Score/Fall Risk Level 0 - 2 = Low Risk. Abuse as6 screen: Denies threats or abuse. Denies injuries from another. Nutritional screening: No deficits noted. Tuberculosis screening: No symptoms or risk factors identified. Vital Signs: 07/06 22:21 BP 169 / 96; Pulse 88; Resp 16; Temp 98.1; Pulse Ox 100% on R/A; Weight 65.77 kg; pf1 Height 5 ft. 7 in. ; Pain 0/10; 22:21 Body Mass Index 22.71 (65.77 kg, 170.18 cm) pf1 22:21 Pain Scale: Adult pf1 ED Course: 22:00 Patient arrived in ED. ja2 22:04 Jose Mukherjee PA is PHCP. cp 22:04 Saurabh Nickerson MD is Attending Physician. cp 22:29 Triage completed. pf1 22:45 No provider procedures requiring assistance completed. Inserted saline lock: 20 gauge pf1 in right antecubital area, using aseptic technique. Blood collected. 22:52 BMP Sent. as7 22:52 CBC with Diff Sent. as7 23:37 US Extrmty Nonvasular Limited: umbilical area for abscess In Process Unspecified. EDMS 07/07 00:46 Cindy Neumann MD is Referral Physician. cp 00:50 Wound Culture Sent. pf1 07:12 Arm band placed on. as6 07:13 IV discontinued, intact, bleeding controlled, No redness/swelling at site. Pressure as6 dressing applied. 07:13 Placed in gown. Bed in low position. as6 Administered Medications: 07/06 23:15 Drug: fentaNYL (PF) IVP 25 mcg Route: IVP; Site: right antecubital; pf1 07/07 07:14 Follow up: Response: No adverse reaction as6 00:58 Drug: Clindamycin IVPB 900 mg Route: IVPB; Infused Over: 30 mins; Site: right cg antecubital; 07:14 Follow up: Response: No adverse reaction; IV Status: Completed infusion; IV Intake: 55pgec0 01:37 CANCELLED (Patient Refused): Lidocaine-Epinephrine Infiltration -1%: (1:100,000) 5 ml pf1 20 ml Infiltration once; to bedside 01:37 CANCELLED (Patient Refused): Bupivacaine Infiltration (0.5 %) 5 ml 10 ml Infiltration pf1 once Medication: 07:12 VIS not applicable for this client. as6 Intake: 07:14 IV: 50ml; Total: 50ml. as6 Outcome: 00:47 Discharge ordered by . cp 01:38 Discharged to home ambulatory, with family. pf1 01:38 Condition: improved 01:38 Discharge instructions given to patient, Instructed on discharge instructions, follow up and referral plans. Demonstrated understanding of instructions, follow-up care, medications, Prescriptions given X 1. 01:38 Patient left the ED. pf1 Signatures: Dispatcher [employer] EDMS Jose Mukherjee PA PA cp Garcia, Cindy, RN RN Amy Pantoja Ashby, RN RN as6 Maria D Cordero RN RN pf1 Netta Hammonds as7
[2022-07-07 02:54] VITALS: BP 169/96; TEMP 98.1; O2SAT 100
--- NOTE | 2022-07-08 12:28 | RAD REPORT ---
EXAM DESCRIPTION: US - Extremity Nonvascular Limited - 07/06/2022 11:35 pm CLINICAL HISTORY: SWELLING Extremity Nonvascular Limited TECHNIQUE: Real-time and roberts scale sonographic imaging of the periumbilical region COMPARISON: None available for comparison FINDINGS: Images of the area of clinical interest in the periumbilical region show complex hypoechoi c focus with internal echoes extending deep to the subcutaneous space which may represent complex flu id collection such as abscess or seroma. This measures approximately 2.2 cm in depth and 1 cm in widt h. Consider further evaluation and characterization with CT. IMPRESSION: Findings suggest complex fluid collection such as abscess or seroma in the area of clini anjum interest. Consider further evaluation and characterization with CT. Electronically signed by: Paco Caraballo MD 07/07/2022 12:10 AM CDT Due to temporary technical issues with the PACS/Fluency reporting system, reports are being signed by the in house radiologists without review as a courtesy to insure prompt reporting. The interpreting radiologist is fully responsible for the content of the report.
== END 2022-07-07 01:38 | disposition home or self-care (01) ==
LOC: ER 21:57
DX: L03.311 Cellulitis of abdominal wall (principal); Z90.49 Acquired absence of other specified parts of digestive tract; I10 Essential (primary) hypertension; Z72.0 Tobacco use; Z88.0 Allergy status to penicillin
CPT/HCPCS: 96365; 87070; 85025; 80048; 36415; 87205; 76882; 96375; 99284; 96366; J3010; 87077; 87186